=== PATIENT | female | born 2005 | race Caucasian/White ===

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

== ENCOUNTER 2024-02-15 21:15 | Emergency (ER) | payer OTHER, SELFPAY ==
[2024-02-15 21:22] VITALS: BP 144/83; PULSE 100; RESP 20; TEMP 37.7; O2SAT 98; BMI 29.2
[2024-02-15] MEDS: LACTATED RINGERS 1000 ML 1,000 ML IV (21:50)
--- NOTE | 2024-02-15 21:53 | ED.CHESTPAIN ---
HPI - Chest Pain General Time Seen by Provider: 21:54 Date Seen: 02/15/24 Chief Complaint: Chest Pain Stated Complaint: chest pain Time Seen by Provider: 02/15/24 21:27 Source: patient, RN notes reviewed and old records reviewed Mode of arrival: ambulatory Limitations: no limitations History of Present Illness HPI narrative: This 18-year-old female is ambulatory into the ED of her own accord with concern chest pain. It is been there since yesterday, she describes it is there all the time, has a sharp character. It is not necessarily pleuritic. It is been bad to the point that she will feel electric shocks into both arms and arms will feel numb and tingly. She admits that she is having progressive shortness of breath for while. She reportedly was hospitalized at [facility] December 09 to December 12 of this year. She had an EKG, echocardiogram, MRI, EEG. [place] [address] in a fever of 102?, heart rate of 120. Her strep ended up being positive on 12/12/2023. She notes that she has had ongoing spells of syncope. She passed out multiple times last weekend, her friend who is with her states at 1 point she stopped breathing. They did call 911, she declined transfer for evaluation. She states that they are considering possibility of pots and considering referral for this. She does have underlying anxiety, had been started back on citalopram in December. I do have her visit note from Dr. Floyd from 12/14/2023. Patient admits that she was , miscarried last month but is not on any contraceptives. She notes that she has fluttering spells of her heart, this has been getting worse. She states she did wear a heart monitor from [facility] for about 30 days. She notes she still had spells of her heart rate going up to 120s. complaint: chest pain Related Data Home Medications ?Medication ?Instructions ?Recorded ?Confirmed citalopram 20 mg tablet 20 mg PO DAILY 01/04/24 01/04/24 Allergies Allergy/AdvReac Type Severity Reaction Status Date / Time watermelon Allergy Severe Anaphylaxis Verified 02/15/24 21:26 banana AdvReac Verified 02/15/24 21:26 Review of Systems Status of ROS Reports: 6 or more systems reviewed and unremarkable except as noted in History and below [facility] History Syncope ?R55 - Syncope and collapse (ICD-10) Headache ?R51.9 - Headache, unspecified (ICD-10) Social History Smoking Status: Never smoker Do you use any of these nicotine containing products: None How often do you have a drink containing alcohol: never AUDIT-C Alcohol total score: 0 Non-prescribed substance use: denies use service: No Exam Const Vital Signs, click to edit/add: Vital Signs - 24 hr 02/15/24 21:22 02/15/24 23:00 02/15/24 23:29 Temperature 99.8 F H Pulse Rate [Pulse Oximeter] 100 79 75 Respiratory Rate 20 16 Blood Pressure [Right Upper Arm] 144/83 H Pulse Oximetry 98 99 98 Oxygen Delivery Method Room Air Room Air Room Air This 18-year-old female is alert, interactive, no apparent distress. She is speaking complete sentences, speech is normal. Pupils are equal and round, extraocular movements intact, sclera clear. Symmetrical facial function. Neck is supple, no adenopathy, no thyromegaly masses or nodules. Lungs are clear come good air entry, no wheezing or crackles. CV regular rate and rhythm, no murmur, normal S1-S2, no S3-S4. No chest wall tenderness. Abdomen is soft no rebound or guarding, organomegaly. She has no lower extremity edema. Documenting provider has reviewed patient's vital signs: yes Course Course ED Course: Patient will be on cardiac monitoring and pulse oximetry to ensure no arrhythmia or hypoxia. Consider chest imaging with CT PE protocol if her D-dimer is elevated. Check full complement of labs. At her age would be unlikely to be acute coronary syndrome unless she has anomalous vessels or cycle infective etiology. She currently looks quite well. We did discuss if her workup here is negative, highly recommend following up with her primary care provider for further discussion of her symptoms, consideration of referral to specialist in POTS. Reevaluation(s) Time of Reevaluation #1: 00:03 Reevaluation #1: Reviewed with patient that we have seen no evidence of arrhythmia or hypoxia while being monitored. Her laboratory evaluation [place] [address], certainly lower than what she was in December at 22,000 that was reported. Her D-dimer is normal at 0.33, thus, no recommendation for chest CT PE protocol. Her blood gas on arrival supports hyperventilation. Her chemistries are normal, magnesium was normal, troponin I undetectable. Her C reactive protein and procalcitonin are normal, hCG qualitative was negative. ProBNP less than 20. There was no strep, triple viral swab was negative. This time I do think she is stable to discharge to home for further outpatient evaluation management. We do not definitively know exact etiology of her chest symptoms but we have ruled out medical emergencies at this time. Vital Signs Vital signs: Initial Vital Signs Temperature 99.8 F H 02/15/24 21:22 Temperature Source Temporal Artery Scan 02/15/24 21:22 Pulse Rate 100 02/15/24 21:22 Respiratory Rate 20 02/15/24 21:22 Blood Pressure 144/83 H 02/15/24 21:22 Blood Pressure Mean 103 02/15/24 21:22 Blood Pressure Position Sitting 02/15/24 21:22 Pulse Oximetry 98 02/15/24 21:22 Oxygen Delivery Method Room Air 02/15/24 21:22 Vital Signs Temperature 99.8 F H 02/15/24 21:22 Pulse Rate 100 02/15/24 21:22 Respiratory Rate 20 02/15/24 21:22 Blood Pressure 144/83 H 02/15/24 21:22 Pulse Oximetry 98 02/15/24 21:22 Oxygen Delivery Method Room Air 02/15/24 21:22 Temperature 99.8 F H 02/15/24 21:22 Pulse Rate 75 02/15/24 23:29 Respiratory Rate 16 02/15/24 23:00 Blood Pressure 144/83 H 02/15/24 21:22 Pulse Oximetry 98 02/15/24 23:29 Oxygen Delivery Method Room Air 02/15/24 23:29 Medications Administered Medications: Discontinued Medications Generic Name Dose Route Start Last Admin Trade Name Freq PRN Reason Stop Dose Admin Lactated Ringer's 1,000 mls @ 1,000 mls/hr 02/15/24 21:31 02/15/24 22:50 Lactated Ringers 1000 Ml IV 02/15/24 22:30 Infused .Q1H ONE Infusion MDM - Chest Pain Lab Data Attestation: I reviewed the patient's lab results. Labs: Lab Results 02/15/24 02/15/24 02/15/24 Range/Units 21:50 21:50 21:50 WBC 14.54 H (4.50-11.00) K/uL RBC 4.64 (4.00-5.20) m/uL Hgb 14.0 (12.0-16.0) gm/dL Hct 42.1 (33.0-51.0) % MCV 91 (80-100) fL MCH 30 (26-34) pg MCHC 33 (32-36) gm/dL RDW Coeff of Nel 13.1 (11.5-15.5) % Plt Count 342 (140-440) K/uL Neut % (Auto) 64.8 (42.0-72.0) % Lymph % (Auto) 24.7 (20-44) % [place] % (Auto) 4.7 (0.0-11.0) % Eos % (Auto) 5.2 (0.0-7.0) % Baso % (Auto) 0.4 (0.0-3.0) % Neut # (Auto) 9.40 H (1.7-7.0) K/uL Lymph # (Auto) 3.60 H (0.90-2.90) K/uL [place] # (Auto) 0.70 (0.00-0.90) K/UL Eos # (Auto) 0.80 H (0.00-0.50) K/uL Baso # (Auto) 0.10 (0.00-0.30) K/uL Abs Immat Gran (auto) 0.00 (0.00-0.30) K/uL Imm/Tot Granulo (auto) 0.2 % D-Dimer Quant (PE/DVT) 0.33 (0.00-0.50) ug/ml VBG pH 7.427 (7.32-7.43) VBG pCO2 35 L (40-50) mmHG VBG pO2 105.0 H (25-47) mmHG VBG HCO3 23 (21-28) mmol/L Sodium Cancelled 139 Potassium Cancelled 3.7 Chloride Cancelled Carbon Dioxide Anion Gap BUN Creatinine Estimated Creat Clear Estimated GFR Glucose Lactate (0.5-1.9) mmol/L Calcium Magnesium (1.5-2.6) mg/dL Troponin I (0.01-0.04) ng/mL C-Reactive Protein NT-Pro-B Natriuret Pep pg/mL Procalcitonin (<0.50) ng/mL HCG, Qual (Negative) SARS-CoV-2 (PCR) (Negative) Influenza Type A (PCR) (Negative) Influenza Type B (PCR) (Negative) RSV (PCR) (Negative) Group A Strep DNA (Not Detectd) 02/15/24 02/15/24 02/15/24 Range/Units 21:50 21:50 21:50 WBC (4.50-11.00) K/uL RBC (4.00-5.20) m/uL Hgb (12.0-16.0) gm/dL Hct (33.0-51.0) % MCV (80-100) fL MCH (26-34) pg MCHC (32-36) gm/dL RDW Coeff of Nel (11.5-15.5) % Plt Count (140-440) K/uL Neut % (Auto) (42.0-72.0) % Lymph % (Auto) (20-44) % [place] % (Auto) (0.0-11.0) % Eos % (Auto) (0.0-7.0) % Baso % (Auto) (0.0-3.0) % Neut # (Auto) (1.7-7.0) K/uL Lymph # (Auto) (0.90-2.90) K/uL [place] # (Auto) (0.00-0.90) K/UL Eos # (Auto) (0.00-0.50) K/uL Baso # (Auto) (0.00-0.30) K/uL Abs Immat Gran (auto) (0.00-0.30) K/uL Imm/Tot Granulo (auto) % D-Dimer Quant (PE/DVT) (0.00-0.50) ug/ml VBG pH (7.32-7.43) VBG pCO2 (40-50) mmHG VBG pO2 (25-47) mmHG VBG HCO3 (21-28) mmol/L Sodium Potassium Chloride 108 Carbon Dioxide Cancelled 21 Anion Gap Cancelled 10 BUN Cancelled Creatinine Estimated Creat Clear Estimated GFR Glucose Lactate (0.5-1.9) mmol/L Calcium Magnesium (1.5-2.6) mg/dL Troponin I (0.01-0.04) ng/mL C-Reactive Protein NT-Pro-B Natriuret Pep pg/mL Procalcitonin (<0.50) ng/mL HCG, Qual (Negative) SARS-CoV-2 (PCR) (Negative) Influenza Type A (PCR) (Negative) Influenza Type B (PCR) (Negative) RSV (PCR) (Negative) Group A Strep DNA (Not Detectd) 02/15/24 02/15/24 02/15/24 Range/Units 21:50 21:50 21:50 WBC (4.50-11.00) K/uL RBC (4.00-5.20) m/uL Hgb (12.0-16.0) gm/dL Hct (33.0-51.0) % MCV (80-100) fL MCH (26-34) pg MCHC (32-36) gm/dL RDW Coeff of Nel (11.5-15.5) % Plt Count (140-440) K/uL Neut % (Auto) (42.0-72.0) % Lymph % (Auto) (20-44) % [place] % (Auto) (0.0-11.0) % Eos % (Auto) (0.0-7.0) % Baso % (Auto) (0.0-3.0) % Neut # (Auto) (1.7-7.0) K/uL Lymph # (Auto) (0.90-2.90) K/uL [place] # (Auto) (0.00-0.90) K/UL Eos # (Auto) (0.00-0.50) K/uL Baso # (Auto) (0.00-0.30) K/uL Abs Immat Gran (auto) (0.00-0.30) K/uL Imm/Tot Granulo (auto) % D-Dimer Quant (PE/DVT) (0.00-0.50) ug/ml VBG pH (7.32-7.43) VBG pCO2 (40-50) mmHG VBG pO2 (25-47) mmHG VBG HCO3 (21-28) mmol/L Sodium Potassium Chloride Carbon Dioxide Anion Gap BUN 15 Creatinine Cancelled 0.7 Estimated Creat Clear Cancelled 110.70 Estimated GFR Cancelled Glucose Lactate (0.5-1.9) mmol/L Calcium Magnesium (1.5-2.6) mg/dL Troponin I (0.01-0.04) ng/mL C-Reactive Protein NT-Pro-B Natriuret Pep pg/mL Procalcitonin (<0.50) ng/mL HCG, Qual (Negative) SARS-CoV-2 (PCR) (Negative) Influenza Type A (PCR) (Negative) Influenza Type B (PCR) (Negative) RSV (PCR) (Negative) Group A Strep DNA (Not Detectd) 02/15/24 02/15/24 02/15/24 Range/Units 21:50 21:50 21:50 WBC (4.50-11.00) K/uL RBC (4.00-5.20) m/uL Hgb (12.0-16.0) gm/dL Hct (33.0-51.0) % MCV (80-100) fL MCH (26-34) pg MCHC (32-36) gm/dL RDW Coeff of Nel (11.5-15.5) % Plt Count (140-440) K/uL Neut % (Auto) (42.0-72.0) % Lymph % (Auto) (20-44) % [place] % (Auto) (0.0-11.0) % Eos % (Auto) (0.0-7.0) % Baso % (Auto) (0.0-3.0) % Neut # (Auto) (1.7-7.0) K/uL Lymph # (Auto) (0.90-2.90) K/uL [place] # (Auto) (0.00-0.90) K/UL Eos # (Auto) (0.00-0.50) K/uL Baso # (Auto) (0.00-0.30) K/uL Abs Immat Gran (auto) (0.00-0.30) K/uL Imm/Tot Granulo (auto) % D-Dimer Quant (PE/DVT) (0.00-0.50) ug/ml VBG pH (7.32-7.43) VBG pCO2 (40-50) mmHG VBG pO2 (25-47) mmHG VBG HCO3 (21-28) mmol/L Sodium Potassium Chloride Carbon Dioxide Anion Gap BUN Creatinine Estimated Creat Clear Estimated GFR 127 Glucose Cancelled 114 Lactate 1.3 (0.5-1.9) mmol/L Calcium Cancelled 9.1 Magnesium 2.0 (1.5-2.6) mg/dL Troponin I < 0.01 L (0.01-0.04) ng/mL C-Reactive Protein Cancelled NT-Pro-B Natriuret Pep pg/mL Procalcitonin (<0.50) ng/mL HCG, Qual (Negative) SARS-CoV-2 (PCR) (Negative) Influenza Type A (PCR) (Negative) Influenza Type B (PCR) (Negative) RSV (PCR) (Negative) Group A Strep DNA (Not Detectd) 02/15/24 02/15/24 Range/Units 21:50 22:09 WBC (4.50-11.00) K/uL RBC (4.00-5.20) m/uL Hgb (12.0-16.0) gm/dL Hct (33.0-51.0) % MCV (80-100) fL MCH (26-34) pg MCHC (32-36) gm/dL RDW Coeff of Nel (11.5-15.5) % Plt Count (140-440) K/uL Neut % (Auto) (42.0-72.0) % Lymph % (Auto) (20-44) % [place] % (Auto) (0.0-11.0) % Eos % (Auto) (0.0-7.0) % Baso % (Auto) (0.0-3.0) % Neut # (Auto) (1.7-7.0) K/uL Lymph # (Auto) (0.90-2.90) K/uL [place] # (Auto) (0.00-0.90) K/UL Eos # (Auto) (0.00-0.50) K/uL Baso # (Auto) (0.00-0.30) K/uL Abs Immat Gran (auto) (0.00-0.30) K/uL Imm/Tot Granulo (auto) % D-Dimer Quant (PE/DVT) (0.00-0.50) ug/ml VBG pH (7.32-7.43) VBG pCO2 (40-50) mmHG VBG pO2 (25-47) mmHG VBG HCO3 (21-28) mmol/L Sodium Potassium Chloride Carbon Dioxide Anion Gap BUN Creatinine Estimated Creat Clear Estimated GFR Glucose Lactate (0.5-1.9) mmol/L Calcium Magnesium (1.5-2.6) mg/dL Troponin I (0.01-0.04) ng/mL C-Reactive Protein 0.6 NT-Pro-B Natriuret Pep < 20 pg/mL Procalcitonin < 0.03 L (<0.50) ng/mL HCG, Qual Negative (Negative) SARS-CoV-2 (PCR) Negative SARS-CoV-2 (Negative) Influenza Type A (PCR) Negative PCR FLU A (Negative) Influenza Type B (PCR) Negative PCR FLU B (Negative) RSV (PCR) Negative PCR RSV (Negative) Group A Strep DNA NOT DETECTED (Not Detectd) ECG Data Attestation: I personally reviewed and interpreted this ECG as follows: (Sinus rhythm, 90 beats per minute. Incomplete right bundle branch block. No evidence of any ischemia or infarct. QT corrected 441 milliseconds.) ECG interpretation date: 02/15/24 ECG interpretation time: 22:13 Prior ECG tracings: not available for review Discharge Plan Discharge Clinical Impression: Chest pain Patient Disposition: Home, Self-Care Condition: Stable Instructions: Chest Pain (ED) Additional Instructions: Need to get scheduled with your primary care provider in clinic. Discuss potential referral for POTS for your recurrent syncope and her other symptoms. Can try some Tylenol or ibuprofen for your current chest symptoms. Do want you seen in clinic within the next 3-5 days for re-evaluation in further workup for your symptoms. In the meantime, if you are worsening, develops new or concerning symptoms, do have a fever develop, do recommend re-evaluation. Activity Level: Activity as Tolerated Discharge Diet: Regular Prescriptions: No Action citalopram 20 mg tablet 20 mg PO DAILY Follow Up/Referrals: Margarita Floyd MD [Primary Care Provider] - Stand Alone Forms: [employer] Info Instructions
[2024-02-15 21:59] LABS: HCO3 VBG 23 mmol/L (21-28); Lactate* 1.3 mmol/L (0.5-1.9); PCO2 VBG 35 mmHG (40-50); pH VBG 7.427 (7.32-7.43)
[2024-02-15 22:10] LABS: Basophils Percent Auto 0.4 % (0.0-3.0); Eosinophils Percent Auto 5.2 % (0.0-7.0); Hematocrit 42.1 % (33.0-51.0); Immature Granulocytes Pct Auto 0.2 %; Lymphocytes Percent Auto 24.7 % (20-44); Mean Corpuscular HGB Conc 33 gm/dL (32-36); Mean Corpuscular Hemoglobin 30 pg (26-34); Mean Corpuscular Volume 91 fL (80-100); Monocytes Percent Auto 4.7 % (0.0-11.0); Neutrophils Percent Auto 64.8 % (42.0-72.0); Platelet Count* 342 K/uL (140-440); RDW Coefficient of Variation % 13.1 % (11.5-15.5); Red Blood Count 4.64 m/uL (4.00-5.20); White Blood Count* 14.54 K/uL (4.50-11.00)
[2024-02-15 22:13] LABS: Slide Review Reflex No
--- OUTSIDE RECORDS SUMMARY | 2024-02-15 22:16 | XMS_ITS | Encounter Summary ---
Author Organization [facility] Address [address] [place] [address] Care Team Providers Care Java Developer Analyst Name Role Phone Jocelyn Devine PA-C Primary Care Provider [phone] Reason for Referral * Consult/Transfer Care (Routine) - New Request Specialty Diagnoses / Procedures Referred By Contac t Referred To Contact Diagnoses Syncope, unspecified syncope type Keri Weston PA-C [address] [place] [address] Referral ID Status Reason Start Date Expiration Date V isits Requested Visits Authorized [id number] New Request 12/13/2023 03/13/2025 1 1 Scheduling Instructions Your clinician [email or web address] You can quickly make your appointment by calling [phone] We suggest you call your health insurance company about your coverage and benefits for this appointment. Question Answer Appointment Urgency? Non-Urgent * Procedure/Equipment (Routine) - New Request Specialty Diagnoses / Procedures Referred By Contac t Referred To Contact Diagnoses Syncope, unspecified syncope type Keri Weston PA-C [address] [place] [address] Referral ID Status Reason Start Date Expiration Date V isits Requested Visits Authorized [id number] New Request 12/13/2023 03/13/2025 1 1 Scheduling Instructions You will be contacted within a week by cardiology regarding your monitor hook and eye machine operator. This recommended service may not be covered by your insurance coverage. We suggest you call your health insurance company about your coverage and benefits for this appointment. Question Answer Appointment Urgency? Non-Urgent Location: [facility] Is patient appropriate candidate for self hookup of monitor? Yes Does this patient have a pacemaker No Diagnosis: Syncope and Collapse and Near Syncope * Therapies (Routine) - New Request Specialty Diagnoses / Procedures Referred By Darren narvaez Referred To Contact Diagnoses Syncope, unspecified syncope type Keri Weston PA-C [address] [place] [address] Referral ID Status Reason Start Date Expiration Date V isits Requested Visits Authorized [id number] New Request 12/13/2023 12/10/2024 1 1 Scheduling Instructions Your clinician has recommended an appointment with [facility]. You can quickly make your appointment online at [employer]/schedule. You can also call [phone] for help scheduling your appointment. We suggest you call your health insurance company about your coverage and benefits for this appointment. Question Answer Appointment Urgency? Within 1 Week (Urgent) Requested Services Evaluate and treat May use saline for irrigation or cleansing Yes [facility] hospital follow up Choose specific service if desired Vestibular Rehab dexamethasone use Yes May check glucose per protocol (see policy link below) or if patient has symptoms? Yes * Consult/Transfer Care (Routine) Specialty Diagnoses / Procedures Referred By Darren narvaez Referred To Contact [address] [address] Referral ID Status Reason Start Date Expiration Date Visits Re quested Visits Authorized Scheduling Instructions This order is your clinician's recommendation for a service and is not an insurance referral which authorizes payment. The recommended service and/or location may not be covered by your insurance plan. Please call the number on your insurance card to find out your specific benefits and coverage for the recommended services and/or location. If you need help scheduling the recommended services, please ask your clinician's staff to assist you. Question Answer What type of follow up? IP Discharge Appointment Urgency? Non-Urgent Reason for visit? hospital follow up Comments Primary Care Provider: [facility] * Procedure/Equipment (Routine) - Incomplete Specialty Diagnoses / Procedures Referred By Contac t Referred To Contact Procedures MR Brain W/WO IV Cont Carlton Wynne MD [address] [place] [id number] Referral ID Status Reason Start Date Expiration Date V isits Requested Visits Authorized [id number] Incomplete 12/10/2023 03/10/2025 1 1 Reason for Visit * Reason Comments Syncope * Auth/Cert (Routine) Specialty Diagnoses / Procedures Referred By Contac t Referred To Contact Diagnoses Syncope, unspecified syncope type Syncope, unspecified syncope type Referral ID Status Reason Start Date Expiration Date Visits Re quested Visits Authorized [id number] 1 1 Encounter Details Date Type Department Care Team (Late st Contact Info) Description 12/10/2023 2:27 PM CDT - 12/13/2023 12:14 PM CDT Emergency [facility] S[address] [place] [id number] Carmelita Arnold MD [address] [place] [id number] Sid Phelan DO [address] [place] [phone] Carlton Wynne MD [address] [place] [id number] Jean Robins MD [address] [place] [address] Sid Starks MD [address] [place] [phone] Keri Weston PA-C [address] [place] [phone] Syncope, unspecified syncope type (Primary Dx) Discharge Disposition: Home Social History Tobacco Use Types Packs/Day Years Used Date Smoking Tobacco: Never Assessed [facility] Utilities Answer Date Recorded In the past 12 months has th e electric, gas, oil, or water company threatened to shut off services in your home? No 12/10/2023 Humiliation, Afraid, Rape, and Kick questionnair e Answer Date Recorded Fear of Current or Ex-Partner Not on file Emotionally Abused Not on file 12/10/2023 Within the last year, have y ou been kicked, hit, slapped, or otherwise physically hurt by your partner or ex-partner? No 12/10/2023 Within the last year, have y ou been raped or forced to have any kind of sexual activity by your partner or ex-partner? No 12/10/2023 Housing Stability Vital Sign Answer Wale e Recorded In the last 12 months, was t here a time when you were not able to pay the mortgage or rent on time? No 12/10/2023 Number of Places Lived in the Last Year Not on f ile 12/10/2023 In the last 12 months, was t here a time when you did not have a steady place to sleep or slept in a long term (including now)? No 12/10/2023 Sex and Gender Information Value Date Recorded Sex Assigned at Not on file Gender Identity Not on file Sexual Orientation Not on file documented as of this encounter Last Filed Vital Signs Vital Sign Reading Time Taken Comments Blood Pressure 135/57 12/13/2023 8:10 AM CDT Pulse 96 12/13/2023 11:00 AM CDT Temperature 36.9 ??C (98.4 ??F) 12/13/2023 7:40 AM CD T Respiratory Rate 16 12/13/2023 7:40 AM CDT Oxygen Saturation 98% 12/13/2023 8:10 AM CDT Inhaled Oxygen Concentration - - Weight 84.9 kg (187 lb 3.2 oz) 12/10/2023 6:25 P M CDT Height 160 cm (5' 3) 12/10/2023 6:25 PM CDT Body Mass Index 33.16 12/10/2023 6:25 PM CDT documented in this encounter Discharge Summaries * Sid Starks MD - 12/13/2023 10:24 AM CDT I have seen and examined the patient with BO Weston. I agree with the assessment and plan as documented above. Additionally; On my interview She is feeling much better. No spells for 36 hours On my exam Vitals WNL. HR has normalized My assessment and plan; Briefly this young woman was having episodes likely related to pre-syncope after GI illness and concominant Group A strep. As strep/sepsis weren't clear until 24 hours into hospitalization extensive workup was undertaken including EEG (negative for seizures) as well as Echo (Normal EF and no significant valvular disease). Once sepsis from Group A strep was appropriately treated her symptoms resolved. Out of an abundanceof caution she was discharged with an event monitor but it seems likely that her dizziness/weakness/inability to respond was simply due to inflammation, tachycardia, possibly transient hypotension from sepsis Sid Starks MD 12/13/2023 I personally spent > 30 minutes on d/c of this patient. [facility] Hospital Medicine Discharge Summary Patient ID: Aj Sam [id number] 18 y.o. 2005 Admit date: 12/10/2023 Discharge date: 12/13/2023 Final Discharge Diagnoses: Primary problem: Spells of Altered cognition Anxiety (HRC) Heart murmur Incomplete RBBB Dizziness Panic attacks (HRC) Emesis LOC (loss of consciousness) (HRC) * No resolved hospital problems. * Brief HPI Summary: 18 y.o. female with PMH of anxiety, panic attacks, and heart murmur who presented to ED with hxof multiples episodes of syncope. Pt is accompanied by her sister and a friend. Pt states that she has been in her usual state of health until late last week. Pt states that she and her father shared a meal on 12/06 and the both of them then experienced multiple episodes of emesis. Pt states that she felt well the next day on 12/07. She smoked a THC e-cigarette that afternoon. Later that night she became dizzy while grabbing a pop in a gas station. She says that for the rest of the day she felt dizzy and weak. She awoke 12/08 feeling well. However, she would become dizzy when bending over and while in the shower. Later that day while at a truck meet she was standing and had an episode of syncope. Her sister/friend says she was unconscious for 1- 2 minutes. They deny color change or apnea. Pt regained consciousness and was not confused. She then had another similar episode of syncope while sitting in a truck. Pt denies prodromal sx such as dyspnea, chest pain, headache. Pt was then taken to [place] ED where CBC, BMP, glucose, TSH, HCG, D-dimer testing was reassuring. CT head without acute process. Pt discharged with meclizine. Pt states that the episodes of syncope have continued today and she has had probably 15 episodes.Multiple episodes have occurred while sitting and lying. Pt says she has had at least four episodes in the ED today. She has been vitally stable. CBC, BMP, troponin, TSH, HCG, D-dimer all normal. ECG with incomplete RBBB. Pt given NS 1L bolus. Pt says that during some of these episodes her Apple watch report a HR of 170. Pt reports long hx of anxiety and panic attacks. She tells me that years ago she was on a daily medfor anxiety but stopped taking it as it didn't work. She reports that anything can make her anxious including work, family, social life. She denies any recent new stressors. Denies EtOH use and and recreational drug use besides THC. Denies family hx of unexpected in a young individual. She does have CAD on maternal side. Reports headache but says she often gets headaches. Denies diarrhea, fever, chills, change in vision, dyspnea, dysuria, neck pain, trauma. During the spell she reports being aware of it happening. Please see the admission history and physical for full details. Hospital Course, by problem: Spells of altered cognition: Pt reports to be aware when the spells happen Has had over 16 spells since it started 12/08/23, has gone down in frequency (last one 12/12/23 at 2300hrs). -Drug screen is negative, she denies any other drug use aside from THC. - Lab work up has been reassuring with nml TSH, negative Hcg/trop/D-dimer, no infectious/anemic cocnern. -EEG without seizure activity for 24 hrs, neuro saw her; with recommendation below - no driving for 3 months and patient need to report to [facility]. - cautions any activity that potential harm self or other people should she have an event losing motor control. May follow up with primary for resuming driving privileges. - patient may follow up with [facility] or [facility] for potential autonomic function testing. - referral placed -HR 120s, will review telemetry. Has had elevated HR since Mon at [place] where she was diagnosed with paroxysmal tachycardia, was to get Holter monitor. She was in NSR during an event, TTE reassuring, negative troponin. Cardiac cause not found. Symptoms likely from infection. Anxiety Panic attacks States years ago she was on a daily med for anxiety but stopped taking it as it didn't work. Anything can make her anxious. Denies any recent new stressors. - pt considering starting an SSRI, to F/U with PCP Strep group A tonsillitis Sepsis picture 12/11 - sepsis picture noted with fever, tachycardia, WBC 22. Blood cultures obtaines- pending. 12/12 - Afebrile, WBC down to 16. NSR with normal HR. Pt asymptomatic. On Amoxicillin PO. Continue ABX to complete full course Emesis 12/06, resolved Heart murmur 2020 echo reassuring. Repeat TTE 12/12 reassuring. Primary care/TCU recommendations for follow up, including significant medication changes, medications being held, or recommended imaging or labs: Event monitor, to f/u with PCP and cardiac center - Pending Labs: Pending Labs Order Current Status Blood Culture In process Blood Culture In process Blood Culture In process Blood Culture In process Discharge Medications: Done while pt still in hospital bed Medication List START taking these medications amoxicillin 500 MG capsule Commonly known as: AMOXIL Take 1 Capsule (500 mg) by mouth three times a day for 27 doses. Indications: Infection of the Tonsils caused by Streptococcus Bacteria ibuprofen 600 MG tablet Commonly known as: MOTRIN Take 1 Tablet (600 mg) by mouth every 6 hours as needed for Pain or Fever. Where to Get Your Medications These medications were sent to [facility] [address] [facility] [address] Hours: Open 24x7 amoxicillin 500 MG capsule ibuprofen 600 MG tablet - Consults: neurology - Procedures and Surgeries: EEC - non revealing of seizure activity. TTE- Reassuring Discharge Exam: BP 135/57 Pulse 81 Temp 98.4 ??F (36.9 ??C) (Oral) Resp 16 Ht 5' 3 (1.6 m) Wt 84.9 kg (187 lb 3.2 oz) LMP 11/16/2023 SpO2 98% BMI 33.16 kg/m?? Exam: Physical Exam Constitutional: General: She is not in acute distress. Appearance: Normal appearance. She is obese. She is not ill-appearing, toxic- appearing or diaphoretic. HENT: Head: Normocephalic and atraumatic. Right Ear: External ear normal. Left Ear: External ear normal. Ears: Comments: Hearing normal Nose: Nose normal. Mouth/Throat: Pharynx: Uvula midline. Tonsils: Tonsillar exudate present. No tonsillar abscesses. Eyes: General: No scleral icterus. Right eye: No discharge. Left eye: No discharge. Extraocular Movements: Extraocular movements intact. Conjunctiva/sclera: Conjunctivae normal. Pupils: Pupils are equal, round, and reactive to light. Cardiovascular: Rate and Rhythm: Normal. Pulses: Normal pulses. Heart sounds: Normal heart sounds. Pulmonary: Effort: Pulmonary effort is normal. Breath sounds: Normal breath sounds. Abdominal: General: Abdomen is flat. Bowel sounds are normal. Palpations: Abdomen is soft. Tenderness: There is no abdominal tenderness. Musculoskeletal: General: Normal range of motion. Cervical back: Neck supple. Skin: General: Skin is warm. Capillary Refill: Capillary refill takes less than 2 seconds. Neurological: General: No focal deficit present. Mental Status: She is alert and oriented to person, place, and time. Psychiatric: Mood and Affect: Mood normal. Disposition: home Code Status: Full Code Follow up: Referrals (From admission, onward) None Significant Diagnostic Studies (imaging, labs, micro, etc), see EMR for full details: EEG - Non epileptic forms TTE - Summary 1. Normal sinus rhythm during study. 2. Normal LV size with normal wall thickness. Calculated biplane LVEF 65-70%. No regional wall motion abnormalities. (Normal function). Indeterminate diastolic function. 3. Normal RV size and systolic function. 4. There is mild tricuspid valve regurgitation. 5. IVC is small in size and responsive to inspiration indicating normal or low RA pressure. 6. A prior study is not available for comparison. Keri Weston PA-C documented in this encounter Discharge Instructions * Discharge Instructions* Annalisa Archuleta RN - 12/13/2023 10:42 AM CDT Community Resources Fall Prevention Recommendations Follow therapy recommendations around equipment use and activity progression Remove trip hazards to keep pathways clear in the home Remove throw rugs Keep frequently used items in easy to reach places Use non-slip mats in the bathtub and on shower floors Improve lighting in your home in all areas Wear shoes or non-slip footwear inside the house * Discharge Instr - Safety* Annalisa Archuleta RN - 12/13/2023 10:42 AM CDT Call your clinic or seek medical help if you have any sudden change in your condition or if you have any of the following: chest pain difficulty breathing fever greater than 101.3 degrees F pain not relieved with usual methods shortness of breath documented in this encounter Medications at Time of Discharge Medication Sig Dispensed Refills Start Date End Date ibuprofen (MOTRIN) 600 MG tablet Take 1 Tablet (600 mg) by mouth every 6 hours as needed for Pain or Fever. 30 Tablet 12/13/2023 amoxicillin (AMOXIL) 500 MG capsuleIndications:S treptococcal Tonsillitis Take 1 Capsule (500 mg) by mouth three times a day for 27 doses. Indications: Infection of the Tonsils caused by Streptococcus Bacteria 27 Capsule 12/13/2023 12/22/2023 documented as of this encounter Progress Notes * Maria Dolores Lara RN - 12/13/2023 12:00 PM CDT Alert/oriented x4. Afebrile. Independent in room. Continues to complain of throat pain but reports pain is improving. Denies CP/SOB/N/V/N/T. Denies any unmet needs. Discharge education and medicationteaching completed with patient and mother, both verbalized understanding. [facility] Discharge Note - Nursing Admission Date/Time: 12/10/2023 2:27 PM Attending MD: Keri Weston PA-C Patient discharged: to Home. Discharge Date: 12/13/2023 Discharge Time: 12:15 PM Patient accompanied by: relative (mom). Transported by: Walked Valuables were taken home by patient: Yes Discharge instructions given and explained to patient: Yes Discharge Patient Education Plan completed, taught, and provided to patient/caregiver at discharge:Yes Discussed medication risks with patient Patient understands medications usage and side effects Patient understands diagnosis Action Plan for management of symptoms/side effects/complications requiring medical attention established and shared with patient/caregiver Was patient discharged on Warfarin? {(Do not delete line; Warfarin documentation is required) No Patients general condition on discharge: Stable All medical devices (telemetry/IV/etc) unless otherwise ordered, have been removed and stored: Yes --- End of Report --- * Maria Dolores Lara RN - 12/12/2023 6:47 PM CDT Alert/oriented x4. Complains of sore throat at start of shift, redness and white patches observed in back of throat upon assessment. Strep swab ordered per MD, +strep. Patient noted to be very sleepyand febrile later in afternoon, TMax 102.2. PRN tylenol and ibuprofen given, T100.6 on recheck. MD notified and placed new orders for sepsis work up. Respiratory panel swab completed, awaiting results. ECHO will be completed in the AM tomorrow. Appears to be sleeping comfortably at end of shift. Night RN updated and will continue to monitor. Care hours [id number] * Sid Starks MD - 12/12/2023 12:41 PM CDT [facility] Progress Note Chief complaint: altered cognition Subjective: Pt reports that sympotms episodes started 3 days ago, never had any prior. She was in [place] for Truck Meets. Day prior she felt dizzy at which point she took dramamine but never hd an episode. Next day was with lots of friends walking around when she had first episode. Since then she went on having about one every 1-2 hours for the next 24 hrs. Last episode was 2300 yesterday. However she reports to be fully aware when the spells happen, though she cannot do anything about them. She snaps out spontaneously. No associated SOB or difficulty breathing. She gets left upper chest pain and dizziness preceding the episodes and at times BONILLA after the episode. Denies falling or hi tting head. Denies any prior Hx. Denies use of any recreational substance. Denies taking any meds or anything unusual at the festival. Denies known cardiac or neuro pathologies to self, but MS ga and another family member. No light headedness, dizziness, chest pain, SOB, palpitation, n/v/d.She reports sore throat /10 starting early this AM. Objective: BP 127/80 Pulse (!) 121 Temp 99.7 ??F (37.6 ??C) (Oral) Resp 16 Ht 5' 3 (1.6 m) Wt 84.9 kg (187 lb 3.2 oz) LMP 11/16/2023 SpO2 97% BMI 33.16 kg/m?? Oxygen Therapy Device (Oxygen Therapy): room air Flow (L/min): 0 Exam: Physical Exam Constitutional: General: She is not in acute distress. Appearance: Normal appearance. She is obese. She is not ill-appearing, toxic- appearing or diaphoretic. HENT: Head: Normocephalic and atraumatic. Right Ear: External ear normal. Left Ear: External ear normal. Ears: Comments: Hearing normal Nose: Nose normal. Mouth/Throat: Pharynx: Uvula midline. Tonsils: Tonsillar exudate present. No tonsillar abscesses. Eyes: General: No scleral icterus. Right eye: No discharge. Left eye: No discharge. Extraocular Movements: Extraocular movements intact. Conjunctiva/sclera: Conjunctivae normal. Pupils: Pupils are equal, round, and reactive to light. Cardiovascular: Rate and Rhythm: Tachycardia present. Pulses: Normal pulses. Heart sounds: Normal heart sounds. Pulmonary: Effort: Pulmonary effort is normal. Breath sounds: Normal breath sounds. Abdominal: General: Abdomen is flat. Bowel sounds are normal. Palpations: Abdomen is soft. Tenderness: There is no abdominal tenderness. Musculoskeletal: General: Normal range of motion. Cervical back: Neck supple. Skin: General: Skin is warm. Capillary Refill: Capillary refill takes less than 2 seconds. Neurological: General: No focal deficit present. Mental Status: She is alert and oriented to person, place, and time. Psychiatric: Mood and Affect: Mood normal. Results reviewed in [facility] and pertinent results are as follows: Labs: Imaging: Brain MRI 12/09 IMPRESSION: 1. Normal head MRI. Assessment and Plan: Aj Sam is a 18 y.o. female with pmhx of obesity, anxiety, panic attacks, and a heart murmur who was admitted on 12/10/2023 for multiple recurrent spells of altered cognition. Spells of altered cognition: Pt reports to be aware when the spells happen Has had over 16 spells since it started 4 days ago, had gone down in frequency (last one 2300 hrs last night by this encounter). -Drug screen is negative, she denies any other drug use aside from THC. - Lab work up has been reassuring with nml TSH, negative Hcg/trop/D-dimer, no infectious/anemic cocnern. -EEG without seizure activity for 24 hrs, neuro sign off with recommendation for outpatient clinic f/u, no driving -HR 120s, will review telemetry. Has had elevated HR since Mon at [place] where she was diagnosed with paroxysmal tachycardia, was to get Holter monitor. Given no seizure, cardiac cause cannot be ruled out with this HR. Will obtain another TTE (one in 2019 was reassuring), continue telemetry. - Other etiologies as carotid sinus syndrome, situational, vasovagal etc considered. Spells happen even while she is laying down though orthostatics were considered. Anxiety Panic attacks States years ago she was on a daily med for anxiety but stopped taking it as it didn't work. Anything can make her anxious. Denies any recent new stressors. - pt considering starting an SSRI Strep tonsillitis + strep, amoxicillin initiated Emesis 12/06, resolved Heart murmur 2020 echo reassuring. Addendum 1553 hrs: Provider notified pt's temperature was 102 F. Sepsis work up initiated. Labs, fluids, blood cultures. She is in Amoxicillin PO for strep throat. Evaluated at bedside with dad and boyfriend at bedside. Dad denies any known family Hx of such spells. Pt is neurologically intact without deficits, BONILLA, changes with vision/hearing, neck pain, paresthesias or weakness, no n/v/d. Appear non-toxic. Lab at bedside ready to draw labs. She did tolerate PO amoxicillin well. If she gets worse consider transition to IV ABX. At this time it does not seem intracranial infection to need emergent lumbar puncture. She has not had a spell since yesterday. Diet: Regular IVF: None DVT Prophylaxis: Low risk Code Status: Full Code Communication with pt. spokesperson: Pt Expected date of discharge: 1 day pending work up and clinical improvement Billing based on: Complexity - moderate Keri Weston PA-C I have seen and examined the patient with BO Weston. I agree with the assessment and plan as documented above. Additionally; On my interview No LOC during dizzy/can't respond spells. On my exam Normal exam except for tachycardia My assessment and plan; # Sepsis due to to Strep A: Rule out bacteremia. Treat with amox. # Pre-syncope/dizzy spells: Spells are not typical of any cardiac or neuro cause of syncope/loc. Perhaps she is sick from Strep and just experiencing weak/orthostatic episodes. Regardless will rule out more serious causes and plan to d/c with event monitor. Sid Starks MD 12/12/2023 * Neli Grace MD - 12/12/2023 10:52 AM CDT Neurology Inpatient Consultation Consult Requested By: Hospital Medicine Reason for Consult: Syncope Assessment/Recommendations: Aj Sam is a 18 y.o. female with pmhx of anxiety, panic attacks, and a heart murmur who presented to the ED with multiple days of lightheadedness and episodes of syncope. She continues to have recurrent episodes while in the hospital that are not associated with motor symptoms or prodromal symptoms. Her syncope usually lasts around 1-2 minutes per episode and she returns to her baseline within a minute or two after recovering. Labs and imaging including MRI brain wwo have been unrevealing so far. We discussed the need to avoid high risk activities such as driving vehicles for at leastthe next 3 months given these syncopal episodes. Recurrent spells described as light-headedness and unresponsiveness lasting 1-2 minutes. No significant postictal. No reported orthostatic changes. Since 12/09/2023. 24 EEG study showing no seizure activities. During study there was a spell caught but no electrographic seizure activities associated. - no driving for 3 months and patient need to report to [facility]. - cautions any activity that potential harm self or other people should she have an event losing motor control. May follow up with primary for resuming driving privileges. - patient may follow up with [facility] or [facility] for potential autonomic function testing. Neurology will sign off. Call if questions or need re-evaluation. Thank you for consulting us. I personally examined the patient and reviewed relevant imaging, labs, and test results. Total timespent > 35 minutes on this encounter, including history taking, chart review, examination of patient, coordinating with participating team (teams) and/or care givers, and documenting the visit. Neli Grace MD; PhD [facility] History of Present Illness: Aj Sam is a 18 y.o. female with past medical history of anxiety, panic attacks, and a heart murmur who presented to the ED following 2 days of syncopal episodes and lightheadedness. Workup at an outside hospital was reassuring including labs and CT head. Episodes continued which prompted her presentation to ED. She has not had episodes like this in the past. She reports that she did use thc the evening before these episodes began but it is unclear if this thc use is new to her or not. No family or personal history of seizure disorder. Denies any inducing factors. No sleep deprivation or recent particular stress. Patient is exercising regularly. 12/10/2023 documented an episode of fainting/syncope lasting 5-10 seconds. 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 Nurse wanting right away and patient was back to normal self already. Friends reported patient was out for about 2 to 2.5 minutes. She was breathing normally. No report of pale looking. She had 2/[address] chest pain falling episode. She reports each time after an episode shewould feel it. The pain would go away after 10 minutes or so. 12/12/2023: EEG showing no seizure activities. Had 1 spell caught but no electrographic changes to suggest seizure. Past Medical/Family/Social history No known family history of neurologic/seizure disorders or sudden cardiac is allergic to banana and citrullus vulgaris. ROS: A complete 10 point review of systems was obtained, the pertinent positives and negatives are reviewed above and in history present illness. Physical Examination Vitals: 12/12/23 0832 12/12/23 0900 12/12/23 1000 BP: 127/80 Pulse: (!) 117 (!) 111 (!) 109 Resp: Temp: SpO2: 97% Weight: General: Young F, resting in bed comfortably, in NAD Head: Atraumatic, normocephalic, without obvious abnormality HEENT: Oral mucosa dry. Throat clear. Respiratory: Respirations non-labored in RA Cardiovascular: Grossly perfused peripherally Psychiatric: Cooperative and appropriate mood & affect. A&Ox4. Follows two-step commands. EOMs intact. LT intact on face. Symmetric and full facial expressions. SCMs 5/5. Tongue midline. Strength 5/5 throughout. No pronator drift. FNF and HTS intact. * Rozina Eli RN - 12/12/2023 3:34 AM CDT A&Ox4. Frontal headache reported that seems to increase in severity following each unresponsiveepisode. Imitrex dose given with significant relief, PRN tylenol used overnight. Experienced x5 unresponsive episodes at start of shift, eyes fluttering, PERRL, not following commands, feels dizzy following episodes, times written on VEEG. Car Wash Manager shined light in pts eyes during episode, when asked pt did not recall this happening during episode. Throat pain reported this AM, tonsils on the right appear swollen, pain with swallowing- pain medications given per NOV. Up SBA, continent, no neuro changes, makes needs known * Maria Dolores Lara RN - 12/11/2023 7:43 PM CDT Patient alert/oriented x4. Endorses headache that worsens with unresponsive episodes. Patient had x4 family/friend reported spells and x2 RN observed spells, each lasting 40-60 seconds. Patient remained nonverbal for duration of episode, pupils equal and reactive, noted patients eyelids fluttering during episode, reports being aware these episodes are happening but unable to speak or follow commands. PRN tylenol and ibuprofen given for BONILLA with minimal relief. Daisy VALE paged, gave order forimitrex 25mg. Night RN will follow up and administer med. [facility]. Practitioner Notified Note Name of Practitioner notified: Carlton Wynne Time of Practitioner notification: 7:10 PM Reason: [id number]. A Crombie. C/o ongoing throbbing BONILLA, prn apap & ibuprofen ineffect. Can you please order something stronger? Thx Response: Imitrex 25mg ONCE * Carlton Wynne MD - 12/11/2023 7:11 PM CDT Hospital Medicine Cross Cover. Received page from RN. BONILLA resistant to IBU and APAP. I ordered one time dose of Imitrex. Carlton Wynne MD 12/11/23 7:11 PM [facility] Medicine * Jean Robins MD - 12/11/2023 2:03 PM CDT Images from the original note were not included. PROGRESS NOTE Patient's name: Aj Sam Attending: Jean Robins MD Date of Admission: 12/10/2023 Date of Service: 12/11/2023 Summary Statement: 18 y.o. year-old female with no significant past medical history who was admitted on 12/10/2023 with repeat spells of altered consciousness Subjective: Chart reviewed. Patient denies any headache, chest pain, dyspnea, fever, chills, or any other acutecomplaints during my visit today. She did have 2 spells overnight were no abnormalities on telemetry were found. Neurology was consulted this morning. I discussed the case with Neurology, will continue with EEG as noted Objective/Physical Exam: Most Recent Vital Signs: Min and Max Vital Signs (24 hours): Temp: 98.1 ??F (36.7 ??C) BP: 108/65 Pulse: 82 Resp: 16 SpO2: 98 % Temp Min: 98.1 ??F (36.7 ??C) Max: 98.3 ??F (36.8 ??C) BP Min: 108/65 Max: 154/78 Pulse Min: 63 Max: 99 Resp Min: 14 Max: 22 SpO2 Min: 97 % Max: 100 % Gen: No acute distress, sitting up in bed HEENT: Gaze conjugate, MMM Resp: clear to auscultation bilaterally, no wheezing or crackles appreciated CV: regular rate & rhythm, no murmurs appreciated, radial pulses 2+ bilaterally Abd/GI: soft, nondistended, nontender, no masses appreciated, positive bowel sounds : no wilcox MSK: warm, well perfused Neuro: alert, interactive Skin: no rashes, ulcerations on exposed skin surfaces Labs/Imaging: Reviewed, pertinent findings noted below/incorporated into assessment & plan Recent Labs 12/10/23 1520 WBC 11.6* HGB 13.8 PLTS 347 SODIUM 138 K 3.6 BUN 8 CREATININE 0.71 ANIONGAP 9 Assessment & Plan: Possible syncope Spells of altered cognition: Patient reports least 15 episodes in the past several days. She deniesany other drug use aside from THC. No history of this in the past, no family history of similar disorder. --appreciate neurology consult --continue EEG overnight --continue telemetry Anxiety Panic attacks States years ago she was on a daily med for anxiety but stopped taking it as it didn't work. Anything can make her anxious. Denies any recent new stressors. - pt considering starting an SSRI Emesis, resolved She and her father shared a meal on 12/06 and they both then experienced multiple episodes of emesis.No GI sx since then. This could have made her dehydrated but it would be strange to cause syncope (with normal BMP) multiple days later. Heart murmur 2020 echo reassuring FEN: regular PPx: low risk Lines/Catheters: PIV Level of Care: general Dispo: home once work up is complete Code Status/Goals of Care: Full Jean oRbins MD Hospitalist, [facility] Pager: See Santa This note was created with voice recognition software and may have inadvertent word substitutions. documented in this encounter Procedure Notes * Priscilla Valles MD - 12/11/2023 12:14 PM CDT Inpatient EEG Report Indication: episodes of LOC Ordering Provider: Dr. Grace EEG#: [id number] Date of Service: Start: 12/11/23 at 08:05 End: 12/12/23 at 07:25 Pertinent Medications: Current Facility-Administered Medications Medication Dose Route Frequency acetaminophen (TYLENOL) tablet 650 mg 650 mg Oral Q6H PRN benzocaine-menthol (Chloraseptic) lozenge 1 Lozenge 1 Lozenge Oral Q2H PRN calcium carbonate (TUMS) chewable tablet 1,000 mg 1,000 mg Oral Q4H PRN melatonin tablet 6 mg 6 mg Oral At bedtime PRN Technical Description: The continuous inpatient video EEG was recorded using [employer] digital EEG equipment. The electrodes were measured and applied according to the international 10-20 system. State of patient: Awake, Drowsy, and Sleep Activating Procedures: photic stimulation EEG description: Background: The awake background showed appropriate organization with anterior-posterior voltage and frequency gradients. There was a posterior dominant rhythm of 11 Hertz, which was symmetrical and showed normal reactivity. Attenuation of the occipital rhythms accompanied drowsiness. The sleep background contained well formed and symmetric architecture including vertex waves, spindles, and K-complexes. Throughout the recording, there were no epileptiform discharges, paroxysmal features, focal features, or significant interhemispheric asymmetries. Clinical Events: No button pushes but multiple events of interest captured noted at 16:19, 16:32, and 18:53 on 12/10. There were no ictal patterns or EEG abnormalities around the time of the events. A normal posterior dominant rhythm was visible during the events. Ictal: None Hyperventilation: N/A Photic stimulation: No activation of abnormal activity EKG: NSR including during the events EEG Impression: This is a normal continuous inpatient video EEG during wakefulness and sleep. Events of unresponsiveness captured had no EEG correlate suggesting they are not seizures. There were no epileptiform discharges or seizures during this recording period. Report was given to Dr. Lesly Valles MD documented in this encounter Consult Notes * Neli Grace MD - 12/11/2023 7:21 AM CDTAssociated Order(s): NEUROLOGY CONSULT Neurology Inpatient Consultation Date: 12/11/2023 Consult Requested By: Hospital Medicine Reason for Consult: Syncope Assessment/Recommendations: Aj Sam is a 18 y.o. female with pmhx of anxiety, panic attacks, and a heart murmur who presented to the ED with multiple days of lightheadedness and episodes of syncope. She continues to have recurrent episodes while in the hospital that are not associated with motor symptoms or prodromal symptoms. Her syncope usually lasts around 1-2 minutes per episode and she returns to her baseline within a minute or two after recovering. Labs and imaging including MRI brain wwo have been unrevealing so far. We discussed the need to avoid high risk activities such as driving vehicles for at leastthe next 3 months given these syncopal episodes. Recurrent spells described as light-headedness and unresponsiveness lasting 1-2 minutes. No significant postictal. No reported orthostatic changes. Since 12/09/2023. - 24h EEG, will follow up results tomorrow - no driving for 3 months and patient need to report to [facility]. - cautions any activity that potential harm self or other people should she have an event losing motor control - follow-up with neurology outpatient in about 2 months. Clifford An, MS3 [employer] Reviewed EEG and talked with our neurophysiologist so far no seizures. No clinical spells either documented. Attest: I have reviewed and edited the documentation by the MS3. I personally examined the patient and reviewed relevant imaging, labs, and test results. Total time spent > 55 minutes on this encounter, including history taking, chart review, examination of patient, coordinating with participating team (teams) and/or care givers, and documenting the visit. Neli Grace MD; PhD [email or web address] History of Present Illness: Aj Sam is a 18 y.o. female with past medical history of anxiety, panic attacks, and a heart murmur who presented to the ED following 2 days of syncopal episodes and lightheadedness. Workup at an outside hospital was reassuring including labs and CT head. Episodes continued which prompted her presentation to ED. She has not had episodes like this in the past. She reports that she did use thc the evening before these episodes began but it is unclear if this thc use is new to her or not. No family or personal history of seizure disorder. Denies any inducing factors. No sleep deprivation or recent particular stress. Patient is exercising regularly. 12/10/2023 documented an episode of fainting/syncope lasting 5-10 seconds. 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 Nurse wanting right away and patient was back to normal self already. Friends reported patient was out for about 2 to 2.5 minutes. She was breathing normally. No report of pale looking. She had 2/[address] chest pain falling episode. She reports each time after an episode shewould feel it. The pain would go away after 10 minutes or so. Past Medical/Family/Social history No known family history of neurologic/seizure disorders or sudden cardiac is allergic to banana and citrullus vulgaris. ROS: A complete 10 point review of systems was obtained, the pertinent positives and negatives are reviewed above and in history present illness. Physical Examination Vitals: 12/10/23 1855 12/10/23 2153 12/10/23 2155 BP: 133/84 132/61 (!) 146/82 Pulse: 75 70 78 Resp: 16 Temp: 98.1 ??F (36.7 ??C) SpO2: 98% 100% Weight: General: Young F, resting in bed comfortably, in NAD Head: Atraumatic, normocephalic, without obvious abnormality HEENT: Oral mucosa dry. Throat clear. Respiratory: Respirations non-labored in RA Cardiovascular: Grossly perfused peripherally Psychiatric: Cooperative and appropriate mood & affect. A&Ox4. Follows two-step commands. EOMs intact. LT intact on face. Symmetric and full facial expressions. SCMs 5/5. Tongue midline. Strength 5/5 throughout. No pronator drift. FNF and HTS intact. documented in this encounter OR Notes * H&P - Carlton Wynne MD - 12/10/2023 4:48 PM CDT Images from the original note were not included. [facility] Medicine History & Physical Patient name: Aj Sam : 2005 Date of Admission: 12/10/2023 2:27 PM Date of Service: 12/10/2023 Attending/Staff: Carlton Wynne MD Snack Bar Cashier Used: no Chief Complaint Syncope History of Present Illness 18 y.o. female with PMH of anxiety, panic attacks, and heart murmur who presented to ED with hx of multiples episodes of syncope. Pt is accompanied by her sister and a friend. Pt states that she has been in her usual state of health until late last week. Pt states that she and her father shared a meal on 12/06 and the both of them then experienced multiple episodes of emesis. Pt states that she felt well the next day on 12/07. She smoked a THC e-cigarette that afternoon. Later that night she became dizzy while grabbing a pop in a gas station. She says that for the rest of the day she felt dizzy and weak. She awoke 12/08 feeling well. However, she would become dizzy when bending over and while in the shower. Later that day while at a truck meet she was standing and had an episode of syncope. Her sister/friend says she was unconscious for 1- 2 minutes. They deny color change or apnea. Pt regained consciousness and was not confused. She then had another similar episode of syncope while sitting in a truck. Pt denies prodromal sx such as dyspnea, chest pain, headache. Pt was then taken to [place] ED where CBC, BMP, glucose, TSH, HCG, D-dimer testing was reassuring. CT head without acute process. Pt discharged with meclizine. Pt states that the episodes of syncope have continued today and she has had probably 15 episodes.Multiple episodes have occurred while sitting and lying. Pt says she has had at least four episodes in the ED today. She has been vitally stable. CBC, BMP, troponin, TSH, HCG, D-dimer all normal. ECG with incomplete RBBB. Pt given NS 1L bolus. Pt says that during some of these episodes her Apple watch report a HR of 170. Pt reports long hx of anxiety and panic attacks. She tells me that years ago she was on a daily medfor anxiety but stopped taking it as it didn't work. She reports that anything can make her anxious including work, family, social life. She denies any recent new stressors. Denies EtOH use and and recreational drug use besides THC. Denies family hx of unexpected in a young individual. She does have CAD on maternal side. Reports headache but says she often gets headaches. Denies diarrhea, fever, chills, change in vision, dyspnea, dysuria, neck pain, trauma. Review of Systems Review of Systems Complete Review of Systems is negative, unless noted in HPI Past Medical History anxiety, panic attacks, and heart murmur Past Surgical History None Family History Heart disease in maternal grand father Social History Social History Socioeconomic History Marital status: Not on file Spouse name: Not on file Number of children: Not on file Years of education: Not on file Highest education level: Not on file Occupational History Not on file Tobacco Use Smoking status: Not on file Smokeless tobacco: Not on file Substance and Sexual Activity Alcohol use: Not on file Drug use: Not on file Sexual activity: Not on file Other Topics Concern Not on file Social History Narrative Not on file Social Determinants of Health Financial Resource Strain: Low Risk (10/05/2023) Received from [facility] Financial Resource Strain Difficulty of Paying Living Expenses: 3 Difficulty of Paying Living Expenses: Not on file Food Insecurity: No Food Insecurity (10/05/2023) Received from [facility] Food Insecurity Worried About Running Out of Food in the Last Year: 1 Transportation Needs: No Transportation Needs (10/05/2023) Received from [facility] Transportation Needs Lack of Transportation (Medical): 1 Intimate Partner Violence: Not on file Housing Stability: Low Risk (10/05/2023) Received from [facility] Housing Stability Unable to Pay for Housing in the Last Year: 1 Medications None Allergies Patient has no known allergies. Physical Exam Vitals: Patient Vitals for the past 8 hrs: BP Temp Temp src Pulse Resp SpO2 12/10/23 1615 134/77 -- -- 76 (!) 21 99 % 12/10/23 1600 129/74 -- -- 69 17 99 % 12/10/23 1545 (!) 140/87 -- -- 78 17 97 % 12/10/23 1530 (!) 145/91 -- -- 80 18 98 % 12/10/23 1515 (!) 154/78 -- -- 94 15 99 % 12/10/23 1500 136/71 -- -- 84 19 99 % 12/10/23 1445 (!) 144/84 -- -- 99 (!) 22 99 % 12/10/23 1411 (!) 151/78 98.3 ??F (36.8 ??C) Oral 98 16 98 % Constitutional: NAD, lying in bed HEENT: PERRLA, EOMI Neck: No adenopathy. Chest: CTAB on RA Cardiovascular: RRR, no murmurs Abdomen: soft, non tender Musculoskeletal: Normal mass Extremities: Moving all four Lymphatic: No edema Skin: No bruising Neurological: Aox3, CN II-XII intact Labs/Imaging/Other Labs: I have reviewed labs from this admission. Recent Labs 12/10/23 1520 SODIUM 138 K 3.6 CHLORIDE 108 BUN 8 CREATININE 0.71 GLUCOSE 76 Recent Labs 12/10/23 1520 WBC 11.6* HGB 13.8 HCT 43.1 EKG: Reviewed personally by me. ECG reviewed per my interpretation, incomplete RBBB Imaging: EXAM: CT HEAD WITHOUT IV CONTRAST 12/09/23 FINDINGS: There is no evidence of acute intracranial hemorrhage. There is no intracranial mass. There is no midline shift. Ventricles and sulci appear within normal limits. There is no evidence of acute infarction. The skull is intact, with no fracture or lytic lesion. Incidental note is made of mild calcification of the anterior falx. Assessment/Plan 18 y.o. female with PMH of anxiety, panic attacks, and heart murmur who presented to ED with hx of multiples episodes of syncope. Pt is accompanied by her sister and a friend. Syncope Dizziness Pt reports probably 15 episodes of syncope in past two days. She smoked a reportedly THC containing e-cigarette on 12/07 before these sx started. Multiple syncopal episodes have occurred while sitting and lying. Bystanders deny color change or apnea during episodes. No confusion after the episodes Reports dizziness when bending over and while in the shower. OSH CT head without acute process. Pt says she has had at least four episodes in the ED today but monitors reported normal vitals. CBC, BMP, TSH all normal. ECG with incomplete RBBB but trop and d-dimer wnl. No family hx of unexpected in a young individual. Reports headache but says she often gets headaches. Broad ddx includes reaction from recreational drug, vertigo, seizure disorder, arrhythmia, posturalorthostatic tachycardia syndrome, anxiety, narcolepsy, conversion disorder. - Tele - UDS - orthostatic vitals - consider EEG - if Telemetry monitoring is reassuring could consider MRI brain - Echo unlikely to be useful at thus time as normal echo in 2019 and no other cardiac sx. - consider outpatient Vestibular rehab as some of these sx do sound like vertigo. Update #1: Pt's RN in W2 notified me that pt had another episode of loss of consciousness after arriving to the floor. I saw pt at bedside. She was accompanied by four guests. Pt says she feels fine.She was sitting in bed at the time of the episode. The four guests say pt was unconsciousness for approx one minute. They say that she looked like she fell asleep. Pt's only sx now is some mild L sided chest pain. Unfortunately pt's telemetry was malfunctioning during the incident. I discussed with RN who will swap out the Tele packs. Update #2: Pt's RN notified me that pt had another episode at approx 19:40. I reviewed pt's telemetry which was NSR at that time. I came to bedside to discuss this with pt and she tells me she just awoke from another episode. This one lasted 2-3 minutes per the guests. Again, pt was sitting in bed and became unconsciousness. She had previously mentioned some L sided chest pain with previous episodes but there was no chest pain with this episode. She tells me she did feel dizzy prior to the episode and she now feels fatigued. I pushed on the pt's chest at the location she reports pain and I daxa to reproduce the pain. As arrhyhtmia is now less likely I am more concerned for seizure. I tell pt she would benefit from MRI brain and EEG, she is agreeable. I placed MRI order and Neuro consult. Anxiety Panic attacks States years ago she was on a daily med for anxiety but stopped taking it as it didn't work. Anything can make her anxious. Denies any recent new stressors. - pt considering starting an SSRI Emesis, resolved She and her father shared a meal on 12/06 and they both then experienced multiple episodes of emesis.No GI sx since then. This could have made her dehydrated but it would be strange to cause syncope (with normal BMP) multiple days later. Heart murmur 2020 echo reassuring FEN: regular PPx: low risk Lines/Catheters: PIV Level of Care: general Dispo: home once syncope work up is complete Code Status/Goals of Care: Full The patient is being admitted to the hospital for the management of syncope. Billing based on: Time Total time for the visit was 105 minutes including, but not limited to, [id number] time spentreviewing records, counseling, and coordination of care. Carlton Wynne MD [facility] Medicine, [facility] documented in this encounter ED Notes * Slime Plummer MD - 12/10/2023 3:29 PM CDT [facility] Emergency Medicine Visit Note Chief Complaint: Syncope HPI 18 y.o. female with hx of documented murmur, anxiety who presents syncope Patient arrives with friends. She would presented to [facility] last night after she had had several syncopal episodes during the day. These were prodrome, she felt dizzy before. Had mild chest pain that was not associated with the episodes. Not vomiting or having diarrhea. No recent illness. No history of syncopal episodes. Has been eating. She had a CT PE study and labs in the ER last night. She was told these were normal. She came back here after she was discharged with follow-up and instructions for a Holter monitor, since then she has had what friends estimated 15 syncopal episodes.No head trauma or hitting of her head. Triage Vitals [12/10/23 1411] Temp 98.3 ??F (36.8 ??C) Temp src Oral Pulse 98 Resp 16 BP (!) 151/78 SpO2 98 % Physical Exam Const: Well appearing Head: No signs of trauma Eyes: Normal pupils, no scleral icterus, no conjunctival injection ENT: Freely moving neck, mucous membranes moist CV: Normal rate, regular rhythm, peripheral pulses present Resp: Non-labored respirations GI: Soft, non-distended : Deferred MSK: No gross deformities, no edema Skin: Warm, no rashes, no diaphoresis Neuro: Alert, Moving all 4 extremities appropriately Psych: Behavior normal for situation MDM: Old records and nursing notes reviewed as available. 18 y.o. female who presents with syncopal episode Vital signs stable, patient was awake. Has not had a syncopal episode here. Will obtain labs including D-dimer, hCG, lytes trope CBC. EKG shows incomplete right bundle. Fluids ordered. Anticipate based on the number of syncopal episodes that the patient has had that she will require admission for telemetry rather than outpatient Holter monitoring Slime Plummer MD ED Course as of 12/10/23 1655 Sun Dec 10, 2023 1450 ATTENDING: I personally saw the patient, performed gonzalez elements of the visit, and supervised patient care with the head men's tennis coach. MDM: multiple episodes of syncope. EKG sinus, intervals normal. Will need work up. Admit likely. [KG] 1501 Sign out received, assumed care at this time. Presenting with multiple syncopal episodes. Evaluated yesterday at outside ED, negative work-up. Since then has had 15 episodes of syncope. Work-up pending. Likely admit. [JS] 1537 Complete Blood Count -no Diff(!) Mild leukocytosis to 11.6. hemoglobin normal. [JS] 1556 HCG, Serum Qual: Negative Not [JS] 1556 D Dimer, Quant: 0.38 PE unlikely [JS] 1620 Troponin I: <0.01 ACS unlikely [JS] 1620 Basic Metabolic Panel Within normal limits [JS] 1627 Magnesium: 2.0 normal [JS] 1646 TSH, Sensitive: 1.32 Within normal limits [JS] ED Course User Index [JS] Uma Vanessa PA-C [KG] Carmelita Arnold MD Clinical Impressions as of 12/10/23 1655 Syncope, unspecified syncope type * Maris Bauman RN - 12/10/2023 3:20 PM CDT While policy writer sales was at the bedside Aj reported experiencing generalized chest pain with NSR on the monitor and then her eyes closed. Her friends were at the bedside and said she's passed out. Rhythm on the monitor remained sinus, lid lash was present during this event and she aroused within 5 seconds with light sternal pressure. ER provider informed of event. documented in this encounter Plan of Treatment Scheduled Referrals Name Type Priority Associated Diagnoses Orde r Schedule Primary Care Follow-up Referral Routine Syncope, unspecified syncope type Ordered: 12/13/2023 Physical Therapy Referral Routine Syncope, unspecified syncope type Ordered: 12/13/2023 Event Monitor Referral Routine Syncope, unspecified syncope type Ordered: 12/13/2023 Neurology Referral - Adults Referral Routine Syncope, unspecified syncope type Ordered: 12/13/2023 documented as of this encounter Procedures Procedure Name Priority Date/Time Associated Diagnosis Comments EJECTION FRACTION Routine 12/13/2023 8:5 8 AM CDT CARDIAC ROUTINE ECHOCARDIOGRAM Routine 12/13/2023 8:58 AM CDT BASIC METABOLIC PANEL Routine 12/13/2023 6:37 AM CDT COMPLETE BLOOD COUNT-NO DIFF Routine 12/13/2023 6:37 AM CDT CORTISOL Routine 12/13/2023 6:37 AM CDT MAGNESIUM Routine 12/13/2023 6:37 AM CDT RESPIRATORY PANEL Routine 12/12/2023 7:0 0 PM CDT IV INSERTION(LAB TO PERFORM) STAT 12/12/2023 4:52 PM CDT BLOOD CULTURE Routine 12/12/2023 4:52 PM CDT BLOOD CULTURE Routine 12/12/2023 4:52 PM CDT BLOOD CULTURE Routine 12/12/2023 4:52 PM CDT BLOOD CULTURE Routine 12/12/2023 4:52 PM CDT BASIC METABOLIC PANEL STAT 12/12/2023 4:52 PM CDT COMPLETE BLOOD COUNT-NO DIFF STAT 12/12/2023 4:52 PM CDT ECG 12-LEAD ROUTINE(LAB PERFORM) STAT 12/12/2023 1:01 PM CDT ECG-ROUTINE 12 LEAD; INTRPT & REPRT STAT 12/12/2023 12:57 PM CDT STREP GROUP A, MOLECULAR DETECTION STAT 12/12/2023 12:18 PM CDT EEG EXTENDED MONITORING Routine 12/12/2023 7:15 AM CDT INPATIENT TELEMETRY MONITORING Routine 12/12/2023 7:00 AM CDT INPATIENT TELEMETRY MONITORING Routine 12/12/2023 5:40 AM CDT INPATIENT TELEMETRY MONITORING Routine 12/11/2023 11:00 PM CDT EEG EXTENDED MONITORING Routine 12/11/2023 8:08 AM CDT INPATIENT TELEMETRY MONITORING Routine 12/11/2023 7:05 AM CDT MR BRAIN W/WO IV CONT Routine 12/11/2023 3:14 AM CDT RAPID DRUG PANEL, URINE Routine 12/10/2023 9:57 PM CDT INPATIENT TELEMETRY MONITORING Routine 12/10/2023 7:35 PM CDT LIVER PANEL(HEPATIC FUNCTION PANEL) Add-On 12/10/2023 3:20 PM CDT D DIMER, QUANTITATIVE STAT 12/10/2023 3:20 PM CDT TSH, SENSITIVE STAT Add-On 12/10/2023 3:20 PM CDT BASIC METABOLIC PANEL STAT 12/10/2023 3:20 PM CDT TROPONIN I Specified Time 12/10/2023 3:20 PM CDT COMPLETE BLOOD COUNT-NO DIFF STAT 12/10/2023 3:20 PM CDT HCG,QUALITATIVE, SERUM STAT 12/10/2023 3:20 PM CDT MAGNESIUM STAT Add-On 12/10/2023 3:20 PM CDT ECG-ROUTINE 12 LEAD; INTRPT & REPRT STAT 12/10/2023 2:21 PM CDT documented in this encounter Results * EJECTION FRACTION (12/13/2023 8:58 AM CDT) EF 65 % PROSOLV EF test type ECHO PROSOLV 12/13/2023 8:58 AM CDT Sid Starks MD [facility] CAT H LAB/RH Performing Organization Address City/[facility]/ZIP Co de Phone Number [address] [place] [address] * CARDIAC ROUTINE ECHOCARDIOGRAM (12/13/2023 8:58 AM CDT) 12/13/2023 8:58 AM CDT Narrative PROSOLV - 12/13/2023 10:44 AM CDT Summary ??1. Normal sinus rhythm during study. ??2. Normal LV size with normal wall thickness. Calculated biplane LVEF 65-70%. No regional wall motion abnormalities. (Normal function). Indeterminate diastolic function. ??3. Normal RV size and systolic function. ??4. There is mild tricuspid valve regurgitation. ??5. IVC is small in size and responsive to inspiration indicating normal or low RA pressure. ??6. A prior study is not available for comparison. Report Signatures Finalized by Danielle Castillo on 12/13/2023 10:44 AM Procedure Note Danielle Castillo MD - 12/13/2023 Summary 1. Normal sinus rhythm during study. 2. Normal LV size with normal wall thickness. Calculated biplane [id number]%. No regional wall motion abnormalities. (Normal function).Indeterminate diastolic function. 3. Normal RV size and systolic function. 4. There is mild tricuspid valve regurgitation. 5. IVC is small in size and responsive to inspiration indicating normalor low RA pressure. 6. A prior study is not available for comparison. Report Signatures Finalized by Danielle Castillo on 12/13/2023 10:44 AM Sid Starks MD [facility] ECH O/RH Performing Organization Address City/[facility]/ZIP Co de Phone Number [address] [place] [address] * Cortisol (12/13/2023 6:37 AM CDT) Cortisol 12.2 2.9 - 19.4 mcg/dL 12/13/2023 7:39 AM CDT [facility] Blood Venipuncture Butterfly / Unknown 12/13/2023 6:37 AM CDT 12/13/2023 6:53 AM CDT Narrative [facility] - 12/13/2023 7:39 AM CDT Expected values AM (before 10am): 3.7-19.4 mcg/dL PM (after 5pm): 2.9-17.3 mcg/dL Keri Weston PA-C LAB_1 Performing Organization Address [facility] Co de Phone Number [address] * Magnesium (12/13/2023 6:37 AM CDT) Magnesium 1.9 1.6 - 2.6 mg/dL 12/13/2023 7:22 AM [facility] Blood Venipuncture Butterfly / Unknown 12/13/2023 6:37 AM CDT 12/13/2023 6:53 AM CDT Keri Weston PA-C LAB_1 Performing Organization Address [facility] Co de Phone Number [address] * (ABNORMAL) Basic Metabolic Panel (12/13/2023 6:37 AM CDT) Sodium 137 136 - 145 mmol/L 12/13/2023 7:22 AM [facility] Potassium 3.9 3.5 - 5.1 mmol/L 12/13/2023 7:22 AM [facility] Chloride 110(H) 98 - 109 mmol/L 12/13/2023 7:22 AM [facility] CO2 21 20 - 29 mmol/L 12/13/2023 7:22 AM [facility] Anion Gap 6(L) 7 - 16 mmol/L 12/13/2023 7:22 AM [facility] Calcium 8.6 8.4 - 10.4 mg/dL 12/13/2023 7:22 AM [facility] BUN 7 7 - 26 mg/dL 12/13/2023 7:22 AM [facility] Creatinine 0.64 0.55 - 1.02 mg/dL 12/13/2023 7:22 AM [facility] Glucose 93 70 - 100 mg/dL 12/13/2023 7:22 AM [facility] Comment:The given reference range is for the fasting state. Non-fasting reference range for glucose is 70 - 180 mg/dL. GFR, Estimated >60 >60 mL/min/1.7 3m2 12/13/2023 7:22 AM [facility] Blood Venipuncture Butterfly / Unknown 12/13/2023 6:37 AM CDT 12/13/2023 6:53 AM CDT Keri Weston PA-C LAB_1 Performing Organization Address City/State/[facility] Co de Phone Number [address] [address], [facility] * (ABNORMAL) Complete Blood Count-No Diff (12/13/2023 6:37 AM CDT) WBC 16.0(H) 3.5 - 10.5 x10(9)/L 12/13/2023 7:00 AM [facility] RBC 4.32 3.90 - 5.03 x10(12)/L 12/13/2023 7:00 AM [facility] Hemoglobin 12.7 12.0 - 15.5 g/dL 12/13/2023 7:00 AM [facility] HCT 39.5 34.9 - 44.5 % 12/13/2023 7:00 AM [facility] MCV 91.4 80.0 - 100.0 fL 12/13/2023 7:00 AM [facility] MCH 29.4 27.6 - 33.3 pg 12/13/2023 7:00 AM [facility] MCHC 32.2 31.5 - 35.2 g/dL 12/13/2023 7:00 AM [facility] RDW 13.4 11.9 - 15.5 % 12/13/2023 7:00 AM [facility] Platelets 249 150 - 450 x10(9)/L 12/13/2023 7:00 AM CDT [facility] Automated NRBC 0 <=0 /100 WBC 12/13/2023 7:00 AM CDT [facility] Blood Venipuncture Butterfly / Unknown 12/13/2023 6:37 AM CDT 12/13/2023 6:53 AM CDT Keri Weston PA-C LAB_1 Performing Organization Address City/State/[facility] de Phone Number [address] * Respiratory Panel (12/12/2023 7:00 PM CDT) Pathologist [facility] [place] Adenovirus Not Detected Not Detected 12/13/2023 1:40 AM CDT [facility] Coronavirus 229E Not Detected Not Detected 12/13/2023 1:40 AM CDT [facility] Coronavirus HKU1 Not Detected Not Detected 12/13/2023 1:40 AM CDT [facility] Coronavirus NL63 Not Detected Not Detected 12/13/2023 1:40 AM CDT [facility] Coronavirus OC43 Not Detected Not Detected 12/13/2023 1:40 AM CDT [facility] COVID-19 Interpretation Not Detected Not Detected 12/13/2023 1:40 AM CDT [facility] Human Metapneumovirus Not Detected Not Detected 12/13/2023 1:40 AM CDT [facility] Human Rhinovirus/Enterov irus Not Detected Not Detected 12/13/2023 1:40 AM CDT [facility] Influenza A Not Detected Not Detected 12/13/2023 1:40 AM CDT [facility] Influenza B Not Detected Not Detected 12/13/2023 1:40 AM CDT [facility] Parainfluenza Virus 1 Not Detected Not Detected 12/13/2023 1:40 AM CDT [facility] Parainfluenza Virus 2 Not Detected Not Detected 12/13/2023 1:40 AM CDT [facility] Parainfluenza Virus 3 Not Detected Not Detected 12/13/2023 1:40 AM CDT [facility] Parainfluenza Virus 4 Not Detected Not Detected 12/13/2023 1:40 AM CDT [facility] Respiratory Syncytial Virus Not Detected Not Detected 12/13/2023 1:40 AM CDT [facility] Bordetella Parapertussis Not Detected Not Detected 12/13/2023 1:40 AM CDT [facility] Bordetella pertussis Not Detected Not Detected 12/13/2023 1:40 AM CDT [facility] Chlamydia pneumoniae Not Detected Not Detected 12/13/2023 1:40 AM CDT [facility] Mycoplasma Pneumoniae Not Detected Not Detected 12/13/2023 1:40 AM CDT [facility] Swab (Source Required) (Nasopharyngeal swab) Non-blood Collection / Unknown 12/12/2023 7:00 PM CDT 12/12/2023 7:06 PM CDT Sid Starks MD LAB_1 [facility] [address] * (ABNORMAL) BASIC METABOLIC PANEL (12/12/2023 4:52 PM CDT) [facility] Sodium 136 136 - 145 mmol/L 12/12/2023 5:36 PM [facility] Potassium 3.8 3.5 - 5.1 mmol/L 12/12/2023 5:36 PM [facility] Chloride 104 98 - 109 mmol/L 12/12/2023 5:36 PM [facility] CO2 21 20 - 29 mmol/L 12/12/2023 5:36 PM [facility] Anion Gap 11 7 - 16 mmol/L 12/12/2023 5:36 PM [facility] Calcium 9.3 8.4 - 10.4 mg/dL 12/12/2023 5:36 PM [facility] BUN 8 7 - 26 mg/dL 12/12/2023 5:36 PM [facility] Creatinine 0.82 0.55 - 1.02 mg/dL 12/12/2023 5:36 PM [facility] Glucose 103(H) 70 - 100 mg/dL 12/12/2023 5:36 PM [facility] Comment:The given reference range is for the fasting state. Non-fasting reference range for glucose is 70 - 180 mg/dL. GFR, Estimated >60 >60 mL/min/1.7 3m2 12/12/2023 5:36 PM T [facility] Blood Venipuncture / Unknown 12/12/2023 4:52 PM CDT 12/12/2023 5:01 PM CDT Keri Weston PA-C LAB_1 [place] [address], [facility] * (ABNORMAL) COMPLETE BLOOD COUNT-NO DIFF - Discharge Decision (12/12/2023 4:52 PM CDT) WBC 22.6(H) 3.5 - 10.5 x10(9)/L 12/12/2023 5:34 PM T [facility] RBC 4.49 3.90 - 5.03 x10(12)/L 12/12/2023 5:34 PM [facility] Hemoglobin 13.3 12.0 - 15.5 g/dL 12/12/2023 5:34 PM [facility] HCT 40.6 34.9 - 44.5 % 12/12/2023 5:34 PM [facility] MCV 90.4 80.0 - 100.0 fL 12/12/2023 5:34 PM [facility] MCH 29.6 27.6 - 33.3 pg 12/12/2023 5:34 PM [facility] MCHC 32.8 31.5 - 35.2 g/dL 12/12/2023 5:34 PM [facility] RDW 13.2 11.9 - 15.5 % 12/12/2023 5:34 PM [facility] Platelets 305 150 - 450 x10(9)/L 12/12/2023 5:34 PM [facility] Automated NRBC 0 <=0 /100 WBC 12/12/2023 5:34 PM [facility] Blood Venipuncture / Unknown 12/12/2023 4:52 PM CDT 12/12/2023 5:01 PM CDT Keri Weston PA-C LAB_[address] * Blood Culture (12/12/2023 4:52 PM CDT) Blood Culture No Growth at 5 Days RH LAB ETEST METHOD 12/17/2023 6:00 PM CDT [facility] Blood VENIPUNCTURE / Unknown Venipuncture / Unknown 12/12/2023 4:52 PM CDT 12/12/2023 5:00 PM CDT Keri Weston PA-C LAB_1 Performing Organization Address [facility]/ZIP Co de Phone [address] * Blood Culture (12/12/2023 4:52 PM CDT) Blood Culture No Growth at 5 Days RH LAB ETEST METHOD 12/17/2023 6:00 PM CDT [facility] Blood VENIPUNCTURE / Unknown Venipuncture / Unknown 12/12/2023 4:52 PM CDT 12/12/2023 5:00 PM CDT Keri Weston PA-C LAB_1 Performing Organization Address [facility] Co de Phone [address] * IV Insertion, LST Perform (12/12/2023 4:52 PM CDT) IV INSERTION, LST PERFORM (LAB) Done 12/12/2023 8:00 PM CDT [facility] Other Specimen Type Venipuncture / Unknown 12/12/2023 4:52 PM CDT 12/12/2023 6:37 PM CDT Keri Weston PA-C LAB_1 Performing Organization Address [facility]/ZIP Co de Phone Number [address] * ECG 12-Lead Routine (Lab perform) (12/12/2023 1:01 PM CDT) EKG Completed 12/12/2023 4:00 PM CDT [facility] Other Specimen Type Non-blood Collection / Unknown 12/12/2023 1:01 PM CDT 12/12/2023 2:22 PM CDT Sid Starks MD LAB_1 Performing Organization Address [facility]/ZIP Co de Phone Number [facility] [address] [place] [address], [facility] * Ecg 12-Lead Routine (MUSE) (12/12/2023 12:57 PM CDT) Ventricular Rate 119 BPM [facility] Atrial Rate 119 BPM [facility] P-R Interval 128 ms [facility] QRS Duration 84 ms [facility] QT 306 ms [facility] QTc 430 ms [facility] P [place] 26 degrees [facility] R [place] 21 degrees [facility] T [place] 16 degrees [facility] 12/12/2023 12:5 7 PM CDT Narrative [facility] - 12/12/2023 1:44 PM CDT Sinus tachycardia Otherwise normal ECG When compared with ECG of 10-DEC-2023 14:21, Vent. rate has increased BY ??40 BPM Incomplete right bundle branch block is no longer Present Confirmed by Amarjit Philippe ([id number]) on 12/12/2023 1:44:00 PM Procedure Note Amarjit Philippe MD - 12/12/2023 Sinus tachycardia Otherwise normal ECG When compared with ECG of 10-DEC-2023 14:21, Vent. rate has increased BY 40 BPM Incomplete right bundle branch block is no longer Present Confirmed by Amarjit Philippe ([id number]) on 12/12/2023 1:44:00 PM Sid Starks MD EKG Performing Organization Address [facility]/ZIP Co de Phone Number [facility] [address] [place] [address] * (ABNORMAL) Strep Group A by PCR (12/12/2023 12:18 PM CDT) Group A Strep Detected( A) Not Detected 12/12/2023 1:23 PM CDT [facility] Comment:Methodology: Qualita tive real-time PCR assay Swab (Source Required) THROAT SWAB / Unknown Non-blood Collection / Unknown 12/12/2023 12:18 PM CDT 12/12/2023 12:19 PM CDT Keri Weston PA-C LAB_1 Performing Organization Address [facility] Co de Phone Number [address] * INPATIENT TELEMETRY MONITORING (12/12/2023 7:00 AM CDT) TELE P-R INTERVAL 0.11 [facility] TELE QRS DURATION 0.11 [facility] TELE R-R INTERVAL 0.61 [facility] TELE INTERPRETATION Sinus Rhythm PV/RMT, LB/RN [facility] 12/12/2023 7:00 AM CDT Narrative [facility] - 12/12/2023 9:39 AM CDT Sinus Rhythm ??PV/RMT, LB/RN Interface Provider EKG Performing Organization Address [facility] de Phone Number [facility] [address] [place] [address] * INPATIENT TELEMETRY MONITORING (12/12/2023 5:40 AM CDT) TELE INTERPRETATION [facility] 12/12/2023 5:40 AM CDT Narrative [facility] - 12/12/2023 5:40 AM CDT [id number] Interface Provider EKG Performing Organization Address [facility] Co de Phone Number [facility] [address] [place] [address] * INPATIENT TELEMETRY MONITORING (12/11/2023 11:00 PM CDT) TELE P-R INTERVAL 0.12 [facility] TELE QRS DURATION 0.11 [facility] TELE R-R INTERVAL 0.62 [facility] TELE INTERPRETATION Sinus Rhythm SR HR 90s CS(RMT)/RAMSES (RN) [facility] 12/11/2023 11:0 0 PM CDT Narrative [facility] - 12/12/2023 5:23 AM CDT Sinus Rhythm ??SR HR 90s CS(RMT)/RAMSES(RN) Interface Provider EKG Performing Organization Address [facility] de Phone Number [facility] [address] [place] [id number] * INPATIENT TELEMETRY MONITORING (12/11/2023 7:05 AM CDT) TELE INTERPRETATION Sinus Arrhythmia TOM Ramirez P 12/11/2023 7:05 AM CDT Narrative [facility] - 12/11/2023 8:24 AM CDT Sinus Arrhythmia ??Taty Westbrook RN Interface Provider EKG Performing Organization Address [facility] de Phone Number [facility] [address] [place] [id number] * MR Brain W/WO IV Cont (12/11/2023 3:14 AM CDT) Anatomical Region Laterality Modality Head Magnetic Resonan ce 12/11/2023 3:14 AM CDT Narrative 12/11/2023 3:22 AM CDT EXAM: MR BRAIN W/WO IV CONT LOCATION: [facility] DATE: 12/11/2023 INDICATION: Multiple episodes of loss of consciousness COMPARISON: None. CONTRAST: GADOBUTROL 1 MMOL/ML IV SOLN 7.5 mL TECHNIQUE: Routine multiplanar multisequence head MRI without and with intravenous contrast. FINDINGS: INTRACRANIAL CONTENTS: No acute or subacute infarct. No mass, acute hemorrhage, or extra-axial fluid collections. Normal brain parenchymal signal. Normal ventricles and sulci. Normal position of the cerebellar tonsils. No pathologic contrast enhancement. SELLA: No abnormality accounting for technique. OSSEOUS STRUCTURES/SOFT TISSUES: Normal marrow signal. The major intracranial vascular flow voids are maintained. ORBITS: No abnormality accounting for technique. SINUSES/MASTOIDS: No paranasal sinus mucosal disease. No middle ear or mastoid effusion. IMPRESSION: 1. ??Normal head MRI. Procedure Note Vikash Mendiola MD - 12/11/2023 EXAM: MR BRAIN W/WO IV CONT LOCATION: [facility] DATE: 12/11/2023 INDICATION: Multiple episodes of loss of consciousness COMPARISON: None. CONTRAST: GADOBUTROL 1 MMOL/ML IV SOLN 7.5 mL TECHNIQUE: Routine multiplanar multisequence head MRI without and withintravenous contrast. FINDINGS: INTRACRANIAL CONTENTS: No acute or subacute infarct. No mass, acutehemorrhage, or extra-axial fluid collections. Normal brain parenchymalsignal. Normal ventricles and sulci. Normal position of the cerebellartonsils. No pathologic contrast enhancement. SELLA: No abnormality accounting for technique. OSSEOUS STRUCTURES/SOFT TISSUES: Normal marrow signal. The majorintracranial vascular flow voids are maintained. ORBITS: No abnormality accounting for technique. SINUSES/MASTOIDS: No paranasal sinus mucosal disease. No middle ear ormastoid effusion. IMPRESSION: 1. Normal head MRI. Carlton Wynne MD RAD MRI * Rapid Drug Panel, Urine with THC (12/10/2023 9:57 PM CDT) Pathologist [facility] [place] Amphetamines Screen Not Detected Not Detected 12/10/2023 10:38 PM CDT [facility] Barbiturates Screen Not Detected Not Detected 12/10/2023 10:38 PM [facility] Benzodiazepines Screen Not Detected Not Detected 12/10/2023 10:38 PM [facility] Buprenorphine Screen Not Detected Not Detected 12/10/2023 10:38 PM [facility] Cocaine Metabolite Screen Not Detected Not Detected 12/10/2023 10:38 PM T [facility] Methadone Screen Not Detected Not Detected 12/10/2023 10:38 PM [facility] Opiates Screen Not Detected Not Detected 12/10/2023 10:38 PM T [facility] Oxycodone Screen Not Detected Not Detected 12/10/2023 10:38 PM [facility] Phencyclidine (PCP) Screen Not Detected Not Detected 12/10/2023 10:38 PM [facility] THC (Marijuana) Metab Screen Not Detected Not Detected 12/10/2023 10:38 PM T [facility] Creatinine, Urine, Random 75 >20 mg/dL 12/10/2023 10:38 PM CDT [facility] Urine Non-blood Collection / Unknown 12/10/2023 9:57 PM CDT 12/10/2023 10:03 PM CDT [facility] - 12/10/2023 10:38 PM CDT The absence of expected drug(s) and/or drug metabolite(s) may indicate non-compliance, inappropriate timing of specimen collection relative to drug administration, poor drug absorption, diluted/adulterated urine or limitations of testing. The concentration must be greater than or equal to the cutoff concentration to be reported as positive. For medical purposes only: not valid for forensic, legal, or employment use. Carlton Wynne MD LAB_1 Performing Organization Address [facility] Co de Phone Number [facility] [address] [place] [address], [facility] * INPATIENT TELEMETRY MONITORING (12/10/2023 7:35 PM CDT) TELE P-R INTERVAL 0.16 [facility]USE [facility] TELE QRS DURATION 0.07 [facility]USE [facility] TELE R-R INTERVAL 0.64 MUSE [facility] TELE QT 0.25 [facility]USE [facility] TELE INTERPRETATION Sinus Rhythm w/ PAC's MUSE [facility] 12/10/2023 7:35 PM CDT Narrative [facility]USE [facility] - 12/10/2023 7:38 PM CDT Sinus Rhythm ??w/ PAC's Interface Provider EKG Performing Organization Address [facility] Co de Phone Number [facility] [address] [place] [address] * Liver Panel(Hepatic Function Panel) (12/10/2023 3:20 PM CDT) Alkaline Phosphatase 82 40 - 150 U/L 12/10/2023 6:48 PM CDT [facility] Bilirubin, Total 0.3 0.2 - 1.2 mg/dL 12/10/2023 6:48 PM CDT [facility] Bilirubin, Direct 0.2 0.0 - 0.5 mg/dL 12/10/2023 6:48 PM CDT [facility] AST (SGOT) 18 10 - 40 U/L 12/10/2023 6:48 PM CDT [facility] ALT (SGPT) 28 <=55 U/L 12/10/2023 6:48 PM CDT [facility] Protein, Total 7.3 6.4 - 8.3 g/dL 12/10/2023 6:48 PM CDT [facility] Albumin 3.8 3.5 - 5.0 g/dL 12/10/2023 6:48 PM CDT [facility] Blood Venipuncture / Unknown 12/10/2023 3:20 PM CDT 12/10/2023 3:27 PM CDT Carlton Wynne MD LAB_1 Performing Organization Address [facility]/ZIP Co de Phone Number [address] * TSH (12/10/2023 3:20 PM CDT) TSH, Sensitive 1.32 0.30 - 4.50 uIU/mL 12/10/2023 4:42 PM CDT [facility] Blood Venipuncture / Unknown 12/10/2023 3:20 PM CDT 12/10/2023 3:27 PM CDT Uma Vanessa PA-C LAB_1 Performing Organization Address [facility] Co de Phone Number [address] * Magnesium (12/10/2023 3:20 PM CDT) Magnesium 2.0 1.6 - 2.6 mg/dL 12/10/2023 4:24 PM CDT [facility] Blood Venipuncture / Unknown 12/10/2023 3:20 PM CDT 12/10/2023 3:27 PM CDT Uma Vanessa PA-C LAB_1 Performing Organization Address [facility] Co de Phone Number [address] * HCG, QUALitative, Serum (12/10/2023 3:20 PM CDT) [facility] HCG, Serum Qual Negative Negative 12/10/2023 3:51 PM CDT [facility] Blood Venipuncture / Unknown 12/10/2023 3:20 PM CDT 12/10/2023 3:27 PM CDT Carmelita Arnold MD LAB_1 Performing Organization Address [facility] Co de Phone Number [address] * Troponin I (12/10/2023 3:20 PM CDT) [facility] Troponin I <0.01 0.00 - 0.03 ng/mL 12/10/2023 4:07 PM CDT [facility] Blood Venipuncture / Unknown 12/10/2023 3:20 PM CDT 12/10/2023 3:27 PM CDT Carmelita Arnold MD LAB_1 Performing Organization Address [facility] Phone Number [address] * D Dimer, Quantitative (12/10/2023 3:20 PM CDT) [facility] D Dimer, Quant 0.38 <=0.50 ug/mL FEU 12/10/2023 3:50 PM CDT [facility] Blood Venipuncture / Unknown 12/10/2023 3:20 PM CDT 12/10/2023 3:27 PM CDT [facility] - 12/10/2023 3:50 PM CDT A D-dimer level <=0.50 ug/mL FEU in a patient with a low clinical pretest probability for a 1st episode of DVT can rule out lower extremity DVT (rate of DVT in next 3 months < 2%). ?? For patients greater than 50 years of age, the application of age-adjusted cut- off values for D-Dimer may increase the specificity without significant effect on sensitivity. The results in this laboratory are reported as ug/mL FEU. The calculation for age adjusted cut off in ug/mL FEU = age in years x 0.01 ug/mL FEU. For example, the cut off for a 76 year old male is 76 x 0.01 ug/mL FEU = <=0.76 ug/mL FEU. Increased D-dimer is seen in thromboembolism, DIC, liver disease, renal disease, cardiac infarct and failure, cancer, , stroke, infection, recent surgery, hemorrhage and age > 70 years. D-dimer levels decrease with anticoagulation therapy and increasing clot age. Carmelita Arnold MD LAB_[id number] [place] [address] * (ABNORMAL) Complete Blood Count -no Diff (12/10/2023 3:20 PM CDT) WBC 11.6(H) 3.5 - 10.5 x10(9)/L 12/10/2023 3:36 PM CDT [facility] RBC 4.75 3.90 - 5.03 x10(12)/L 12/10/2023 3:36 PM [facility] Hemoglobin 13.8 12.0 - 15.5 g/dL 12/10/2023 3:36 PM [facility] HCT 43.1 34.9 - 44.5 % 12/10/2023 3:36 PM [facility] MCV 90.7 80.0 - 100.0 fL 12/10/2023 3:36 PM [facility] MCH 29.1 27.6 - 33.3 pg 12/10/2023 3:36 PM T [facility] MCHC 32.0 31.5 - 35.2 g/dL 12/10/2023 3:36 PM [facility] RDW 13.2 11.9 - 15.5 % 12/10/2023 3:36 PM [facility] Platelets 347 150 - 450 x10(9)/L 12/10/2023 3:36 PM [facility] Automated NRBC 0 <=0 /100 WBC 12/10/2023 3:36 PM T [facility] Blood Venipuncture / Unknown 12/10/2023 3:20 PM CDT 12/10/2023 3:27 PM CDT Carmelita Arnold MD LAB_1 Performing Organization Address [facility]/ZIP Co de Phone Number [address] * Basic Metabolic Panel (12/10/2023 3:20 PM CDT) Pathologist [facility] Sodium 138 136 - 145 mmol/L 12/10/2023 4:04 PM T [facility] Potassium 3.6 3.5 - 5.1 mmol/L 12/10/2023 4:04 PM T [facility] Chloride 108 98 - 109 mmol/L 12/10/2023 4:04 PM T [facility] CO2 21 20 - 29 mmol/L 12/10/2023 4:04 PM T [facility] Anion Gap 9 7 - 16 mmol/L 12/10/2023 4:04 PM T [facility] Calcium 9.3 8.4 - 10.4 mg/dL 12/10/2023 4:04 PM T [facility] BUN 8 7 - 26 mg/dL 12/10/2023 4:04 PM T [facility] Creatinine 0.71 0.55 - 1.02 mg/dL 12/10/2023 4:04 PM [facility] Glucose 76 70 - 100 mg/dL 12/10/2023 4:04 PM [facility] Comment:The given reference range is for the fasting state. Non-fasting reference range for glucose is 70 - 180 mg/dL. GFR, Estimated >60 >60 mL/min/1.7 3m2 12/10/2023 4:04 PM [facility] Blood Venipuncture / Unknown 12/10/2023 3:20 PM CDT 12/10/2023 3:27 PM CDT Carmelita Arnold MD LAB_1 Performing Organization Address [facility] Co de Phone Number [address] * ECG 12-LEAD ROUTINE (12/10/2023 2:21 PM CDT) Ventricular Rate 79 BPM MUSE [facility]HP Atrial Rate 79 BPM [facility]USE [facility] P-R Interval 120 ms MUSE [facility] QRS Duration 98 ms MUSE [facility] QT 378 ms MUSE [facility] QTc 433 ms MUSE [facility] P [place] 30 degrees MUSE GHP R [place] 19 degrees MUSE GHP T [place] 13 degrees MUSE [facility] 12/10/2023 2:21 PM CDT Narrative [facility] - 12/11/2023 10:29 AM CDT Sinus rhythm Incomplete right bundle branch block Borderline ECG No previous ECGs available Confirmed by Danielle Castillo ([id number]) on 12/11/2023 10:29:57 AM Procedure Note Danielle Castillo MD - 12/11/2023 Sinus rhythm Incomplete right bundle branch block Borderline ECG No previous ECGs available Confirmed by Danielle Castillo ([id number]) on 12/11/2023 10:29:57 AM Kera Holguin MD EKG [facility] [address] [place] [address] documented in this encounter Visit Diagnoses Diagnosis Syncope and collapse- Primary Syncope, unspecified syncope type Incomplete RBBB Right bundle branch block Anxiety (HRC) Anxiety state, unspecified Heart murmur Undiagnosed cardiac murmurs Dizziness Dizziness and giddiness Panic attacks (HRC) Panic disorder without agoraphobia Emesis Vomiting alone LOC (loss of consciousness) (HRC) Other alteration of consciousness * Plan of Care - Howie Harmon RN - 12/13/2023 6:50 AM CDT Pt is A/Ox4. Denies, pain, SOB, and N/V. Neuros unchanged. No fever and no unresponsive episode witnessed or noted this shift. SBA, voiding, no BM. Appears to be sleeping comfortably overnight. Able to make needs known. * Plan of Care - Patricia King RN - 12/11/2023 12:51 PM CDT [facility] Care Management Screening Insurance Coverage: Payor: MEDICA / Plan: MEDICA CHOICE / Product Type: Commercial / Primary Care Provider: Jocelyn K Peñuelas, PA-C Admission Info: Cognitive capacity prior to admission: oriented Independent with ADLs (Prior to Admission)? Yes Living Environment: Living Arrangements (select all that apply): Home - multilevel, Siblings, Parents Follow Up: Please consult CM/SW if needs arise Additional Comments: Patient's chart was reviewed and per care connection rounds, No care management/social work discharge needs were identified. Anticipate patient will discharge home once medically cleared. Please contact the director day care center or social welfare research worker assigned to the treatment team if care coordination is identified. Patricia Degroot RN * Plan of Care - Taty Atkinson RN - 12/11/2023 10:43 AM CDT [facility] Nursing Transfer Note Admission Date/Time: 12/10/2023 2:27 PM Time of transfer: 11:05 AM Transfer from room #: 2608 Accepting nursing unit: [facility] Valuables/belongings sent with patient?: Yes Home meds being used in hospital sent with patient?: N/A Transported by: Wheelchair Family notified of unit transfer and change in patients condition: Yes General condition of patient at time of transfer: BP (!) 146/82 (BP Cuff Size: Regular) Pulse 78 Temp 98.1 ??F (36.7 ??C) (Oral) Resp 16 Ht 5' 3 (1.6 m) Wt 84.9 kg (187 lb 3.2 oz) LMP 11/16/2023 SpO2 100% BMI 33.16 kg/m?? A&Ox4, independent in room Pressure ulcer present: no Select criteria that may indicate need for specialty mattress: None Does patient need specialty mattress upon transfer? N/A Please order specialty mattress, if it is indicated. Need for continued central line assessed: N/A Need for continued indwelling urethral catheter assessed: N/A Device detached from patient in Epic prior to transfer: Yes * Plan of Care - Griselda Pugh RN - 12/11/2023 7:49 AM CDT Care hours: [id number]. Previous nurse and policy writer sales visited pt during shift change and pt had no complaints. Car Wash Manager went to save tele strip. While doing so, friends came out of the pts room and stated that she had another episode. Telemetry showing no changes at that time. Pt awake/alert/back to baseline when policy writer sales came into room. Friends stated that pt was out for about 2-2.5 minutes starting @1940, was breathing normally but unresponsive. Pt endorsed 2/10 sternal CP following episode and states this happens with each episode and resolves after 10min or so. No further syncopal events this shift. Friends/family left at 8pm. Tele: Sinus w/ PAC's. Ind to bathroom. * Plan of Care - Som Davies RN - 12/10/2023 6:55 PM CDT [facility]. Practitioner Notified Note Name of Practitioner notified: Carlton Wynne Time of Practitioner notification: 6:55 PM Reason: [id number] A Warp Picker. FYI pt had episode of syncope/fainting lasting about 5-10 seconds, 5 min ago. Vitally stable. Advise. Response: Provider coming to visit patient * Plan of Care - Pop Wolfe PharmD - 12/10/2023 4:09 PM CDT [facility] Medication History Note 1. Source(s) of Medication Information: Patient, Reg/Dr. Guzman, Care Everywhere 2. Pertinent Information: Patient interviewed and confirmed she does not take any prescription or OTC medications. Medications added: None Medications deleted: None Medications changed: None Compliance considerations: Not applicable 3. Outpatient Medications Marked as Taking: No outpatient medications have been marked as taking for the 12/10/23 encounter (Hospital Encounter). Thank you. This list represents the best possible medication history available at the time of note completion and should be used as a guide in reconciling home medications for hospital use. ? * Triage Assessment Note - Michelle Ward RN - 12/10/2023 2:07 PM CDT Chief complaint: syncope Symptoms/background/relevant history (narrative): pt here with friends who report she has been passing out. Seen at [place] ED yesterday for syncope and need followup for a Holter Monitor. Sincedischarge at 11pm, she had multiple syncopal episodes- friend put her apple watch on her and noted that her HR is at 1130-70 and then she passes out. What is most important to you about your ER visit today? eval Initial falls risk factors: Mobility Location and Intervention: Triage: [place] documented in this encounter Administered Medications Inactive Administered Medications - up to 3 most recent administrations Medication Order MAR Action Action Date Dose Rate Site acetaminophen (TYLENOL) tablet 650 mg 650 mg, Oral, Q6H PRN, Pain/Fever, Initially give acetaminophen for patient with mild pain., Starting on Mon12/10/23 at 1817, Until Mon12/13/23 at 1414, Initially give acetaminophen for patient with mild pain. Acetaminophen may be given WITH other pain medications as adjunct pain relief. Do not give two acetaminophen containing medications within 4 hours of each other. Given 12/12/2023 5:45 PM CDT 650 mg Given 12/12/2023 5:50 AM CDT 650 mg Given 12/11/2023 11:46 PM CDT 650 mg amoxicillin (AMOXIL) capsule 500 mg 500 mg, Oral, TID, First dose on Mon12/12/23 at 1400, For 10 days, Indications: Streptococcal Tonsillitis Given 12/13/2023 8:32 AM CDT 500 mg Given 12/12/2023 8:53 PM CDT 500 mg Given 12/12/2023 3:24 PM CDT 500 mg benzocaine-menthol (Chloraseptic) lozenge 1 Lozenge 1 Lozenge, Oral, Q2H PRN, Throat Pain, Cough, Starting on Mon12/10/23 at 1817, Until Mon12/13/23 at 1414 Given 12/12/2023 5:45 PM CDT 1 Lozenge Given 12/12/2023 5:50 AM CDT 1 Lozenge ibuprofen (MOTRIN) tablet 800 mg 800 mg, Oral, Q8H PRN, Fever, Pain, Starting on Mon12/11/23 at 1732, Until Mon12/13/23 at 1414, Give with food or milk. Given 12/12/2023 5:55 PM CDT 800 mg Given 12/11/2023 6:00 PM CDT 800 mg sodium chloride 0.9% bolus 1,000 mL 1,000 mL, Intravenous, Administer over 1 Hours, ONCE, On Mon12/10/23 at 1515, For 1 dose Started 12/10/2023 3:21 PM CDT 1,000 mL sodium chloride 0.9% infusion 1,000 mL, Intravenous, at 999 mL/hr, ONCE, On Mon12/12/23 at 1615, For 1 dose Started 12/12/2023 5:30 PM CDT 1,000 mL 999 mL/hr sodium chloride 0.9% infusion 1,000 mL, Intravenous, at 500 mL/hr, ONCE, On Mon12/12/23 at 1645, For 1 dose Started 12/12/2023 6:40 PM CDT 1,000 mL 500 mL/hr SUMAtriptan (IMITREX) tablet 25 mg 25 mg, Oral, ONCE, On Mon12/11/23 at 1930, For 1 dose, Give at onset of headache. May repeat after 2 hours. Do not exceed 200 mg in 24 hours. Given 12/11/2023 8:23 PM CDT 25 mg documented in this encounter Active and Recently Administered Medications Times are shown in CDT. Scheduled Medication Order 12/11/2023 12/12/2023 12/13/2023 amoxicillin (AMOXIL) capsule 500 mg 500 mg, Oral, TID, First dose on Mon12/12/23 at 1400, For 10 days, Indications: Streptococcal Tonsillitis 1524 (Given - Provider: Maria Dolores Lara RN)2053 (Given - Provider: Howie Harmon RN) 0832 (Given - Provider: Maria Dolores Lara RN) sodium chloride 0.9% infusion (COMPLETED) 1,000 mL, Intravenous, at 999 mL/hr, ONCE, On Mon12/12/23 at 1615, For 1 dose 1730 (Started - Provider: Maria Dolores Lara RN)184 (Infused - Provider: Maria Dolores Lara RN) sodium chloride 0.9% infusion (COMPLETED) 1,000 mL, Intravenous, at 500 mL/hr, ONCE, On Mon12/12/23 at 1645, For 1 dose 1840 (Started - Provider: Maria Dolores Lara RN) SUMAtriptan (IMITREX) tablet 25 mg (COMPLETED) 25 mg, Oral, ONCE, On Mon12/11/23 at 1930, For 1 dose, Give at onset of headache. May repeat after 2 hours. Do not exceed 200 mg in 24 hours. 2022 (Given - Provider: Rozina Eli RN) PRN Medication Order 12/11/2023 12/12/2023 12/13/2023 acetaminophen (TYLENOL) tablet 650 mg 650 mg, Oral, Q6H PRN, Pain/Fever, Initially give acetaminophen for patient with mild pain., Starting on Mon12/10/23 at 1817, Until Mon12/13/23 at 1414, Initially give acetaminophen for patient with mild pain. Acetaminophen may be given WITH other pain medications as adjunct pain relief. Do not give two acetaminophen containing medications within 4 hours of each other. 1421 (Given - Provider: Maria Dolores Lara RN)2346 (Given - Provider: Rozina Eli RN) 0550 (Given - Provider: Rozina Eli RN)1745 (Given - Provider: Maria Dolores Lara RN) benzocaine-menthol (Chloraseptic) lozenge 1 Lozenge 1 Lozenge, Oral, Q2H PRN, Throat Pain, Cough, Starting on 12/10/23 at 1817, Until Mon12/13/23 at 1414 0550 (Given - Provider: Rozina Eli RN)1745 (Given - Provider: Maria Dolores Lara RN) calcium carbonate (TUMS) chewable tablet 1,000 mg 1,000 mg, Oral, Q4H PRN, Heartburn, Upset Stomach, Starting on Mon12/10/23 at 1817, Until Mon12/13/23 at 1414, For indigestion/upset stomach ibuprofen (MOTRIN) tablet 800 mg 800 mg, Oral, Q8H PRN, Fever, Pain, Starting on 12/11/23 at 1732, Until Mon12/13/23 at 1414, Give with food or milk. 1800 (Given - Provider: Maria Dolores Lara, TOM) 1755 (Given - Provider: Maria Dolores Lara, TOM) melatonin tablet 6 mg 6 mg, Oral, HS PRN, Sedation, Starting on Mon12/10/23 at 1817, Until Mon12/13/23 at 1414 documented in this encounter Care Teams Java Developer Analyst Relationship Specialty Start Date End Date Jocelyn Devine PA-C [address] [place] [address] PCP - General Physician Ehs Specialist 12/11/23 documented as of this encounter
--- OUTSIDE RECORDS SUMMARY | 2024-02-15 22:16 | XMS_ITS | Encounter Summary ---
Author Organization [facility] [address] [place] [address] Care Team Providers Care Brake Operator Helper Name Role Phone Jocelyn Devine PA-C Primary Care Provider Encounter Details Date Type Department Care Team (Late st Contact Info) Description 12/18/2023 Notes/Orders [facility] Non[facility]In[facility] [address], [place] [id number] Keri Weston PA-C [address] [place] [address] Syncope, unspecified syncope type (Primary Dx) Social History Tobacco Use Types Packs/Day Years Used Date Smoking Tobacco: Never Assessed [facility] Utilities Answer Date Recorded In the past 12 months has e [employer], gas, oil, or water [employer] threatened to shut off services in your [...] place to sleep or slept in a penitentiary (including now)? No 12/10/2023 Sex and Gender Information Value Date Recorded Sex Assigned at Not on file Gender Identity Not on file Sexual Orientation Not on file documented as of this encounter Plan of Treatment Not on file documented as of this encounter Procedures Procedure Name Priority Date/Time Associated Diagnosis Comments LIZBETH W MAILOUT Routine 01/17/2024 11:59 PM CDT Syncope, unspecified syncope type documented in this encounter Results * LIZBETH W MAILOUT [id number] (01/17/2024 11:59 PM CDT) 01/17/2024 11:5 9 PM CDT Narrative [facility] - 01/30/2024 4:37 PM CDT Total ??Monitoring duration: 1 day, 1 hour, 14 minutes. No atrial fibrillation or atrial flutter. ??No significant PVCs or PACs less than 1%. No pauses more than 3 seconds. Symptoms of flutter/ skipped beats/tiredness/ fatigue associated with sinus bradycardia 59 beats per minute. Sinus tachycardia up to 185 beats per minute noted, ??no associated symptoms. Confirmed by Jenaro Abraham ([id number]) on 01/30/2024 4:37:11 PM Procedure Note Jenaro Abraham MD - 01/30/2024 Total Monitoring duration: 1 day, 1 hour, 14 minutes. No atrialfibrillation or atrial flutter. No significant PVCs or PACs less than 1%.No pauses more than 3 seconds. Symptoms of flutter/ skipped beats/tiredness/ fatigueassociated with sinus bradycardia 59 beats per minute. Sinus tachycardiaup to 185 beats per minute noted, no associated symptoms. Confirmed by Jenaro Abraham ([id number]) on 01/30/2024 4:37:11 PM Keri Weston PA-C CARDIOLOGY/[facility] [address] [place] [address] documented in this encounter Visit Diagnoses Diagnosis Syncope, unspecified syncope type- Primary documented in this encounter Care Teams Brake Operator Helper Relationship Specialty Start Date End Date Jocelyn Devine PA-C [address] [place] [address] PCP - General Physician Fixed Assets Accountant 12/11/23 documented as of this encounter
--- OUTSIDE RECORDS SUMMARY | 2024-02-15 22:16 | XMS_ITS | Clinical Summary ---
Author Organization [facility] Address [address] [place] [address] Care Team Providers Care Salvage Cutter Name Role Phone Jocelyn Devine PA-C Primary Care Provider Source Comments You are receiving this document as you are listed as the primary care provider,follow-up provider, or the patient has been referred to you for consultation.This is in compliance with the Medicare andMedicaid EHR Incentive Program,which states Providers who transition their patient to another setting of careor provider of care or refers their patient to another provider of care shouldprovide summary care record for each transition of care or referral. [facility] Allergies Active Allergy Reactions Criticality Noted Date Comments Banana Hives High 12/09/2023 Citrullus Vulgaris Hives High 01/05/2019 Pollen Extract Itching Medium 01/30/2018 Seasonal Allergies: Allergic Rhinitis, Itchy watery eyes Medications Medication Sig Dispensed Refills Start Date End Date Status ibuprofen (MOTRIN) 600 MG tablet Take 1 Tablet (600 mg) by mouth every 6 hours as needed for Pain or Fever. 30 Tablet 12/13/2023 Active Active Problems Problem Noted Date Diagnosed Date Incomplete RBBB 12/10/2023 Syncope and collapse 12/10/2023 Dizziness 12/10/2023 Panic attacks 12/10/2023 Emesis 12/10/2023 Anxiety 06/03/2020 Heart murmur 06/03/2020 Overview: Echocardiogram performed 04/06/2020; unremarkable. Echocardiogram performed 04/06/2020; unremarkable. Allergic rhinitis 03/21/2014 Resolved Problems Problem Noted Date Diagnosed Date Resolved Date LOC (loss of consciousness) 12/10/2023 02/11/2024 Encounters Date Type Department Care Team Description 12/18/2023 Notes/Orders [facility] Cardiac Non-Invasive Lab [address] [place] [id number] Keri Weston PA-C Syncope, unspecified syncope type (Primary Dx) 12/18/2023 Notes/Orders [facility] Cardiac Non-Invasive Lab [address] [place] [id number] Keri Weston PA-C Syncope, unspecified syncope type (Primary Dx) 12/11/2023 2:20 AM CDT Ancillary Procedure [facility] [address] [place] [id number] 12/10/2023 2:27 PM CDT - 12/13/2023 12:14 PM CDT Emergency [facility] S[address] [place] [id number] Carmelita Arnold MD Paddock, Michael T, DO Enroth, Karl O, MD Verner, James R, MD Brunnquell, Michael J, MD Muigai, Maureen M, PA-C Syncope, unspecified syncope type (Primary Dx) Discharge Disposition: Home from Last 3 Months Social History Tobacco Use Types Packs/Day Years Used Date Smoking Tobacco: Never Assessed [facility] Utilities Answer Date Recorded In the past 12 months has th e [employer], gas, oil, or water [employer] threatened to shut off services in your [...] place to sleep or slept in a m[facility]p (including now)? No 12/10/2023 Sex and Gender Information Value Date Recorded Sex Assigned at Not on file Gender Identity Not on file Sexual Orientation Not on file Last Filed Vital Signs Vital Sign Reading [...] Mass Index 33.16 12/10/2023 6:25 PM CDT Plan of Treatment Health Maintenance Due Date Last Done Comments Chlamydia 2003 Hep C Screening (Preventive Services) 2003 HIV Screening (Preventive Services) 2019 Adult Preventive Visit 2021 HepB (1) 2022 COVID-19 Vaccine ( season) 2023 Influenza (Season Ended) 2024 019, 05/18/2018, 08/17/2016, Additional history exists DTaP/Tdap/Td (7 - Tdap) 04/22/2025 04/22/20 15, 01/28/2009, 01/19/2005, Additional history exists Zoster/Shingles (1 of 2) 2053 Hib Completed 01/19/2005, 02/03, 2003 Pneumococcal Aged Out 01/19/2005, 04/04, 02/24/2004, Additional history exists No longer eligible based on patient's age to complete this topic IPV (Polio) Completed 01/28/2009, 04/04, 02/24/2004, Additional history exists HPV Vaccine Completed 08/17/2016, 04/22/2015 HepA Completed 08/17/2016, 04/22/2015 MCV4 Completed 04/15/2020, 04/22/2015 Procedures Procedure Name Priority Date/Time Associated Diagnosis Comments LIZBETH W MAILOUT Routine 01/17/2024 11:59 PM CDT Syncope, unspecified syncope type EJECTION FRACTION Routine 12/13/2023 8:5 8 AM CDT CARDIAC ROUTINE ECHOCARDIOGRAM Routine 12/13/2023 8:58 AM CDT INPATIENT TELEMETRY MONITORING Routine 12/13/2023 7:00 AM CDT CORTISOL Routine 12/13/2023 6:37 AM CDT MAGNESIUM Routine 12/13/2023 6:37 AM CDT BASIC METABOLIC PANEL Routine 12/13/2023 6:37 AM CDT COMPLETE BLOOD COUNT-NO DIFF Routine 12/13/2023 6:37 AM CDT INPATIENT TELEMETRY MONITORING Routine 12/12/2023 11:00 PM CDT RESPIRATORY PANEL Routine 12/12/2023 7:0 0 PM CDT BLOOD CULTURE Routine 12/12/2023 4:52 PM CDT BLOOD CULTURE Routine 12/12/2023 4:52 PM CDT BLOOD CULTURE Routine 12/12/2023 4:52 PM CDT BLOOD CULTURE Routine 12/12/2023 4:52 PM CDT BASIC METABOLIC PANEL STAT 12/12/2023 4:52 PM CDT COMPLETE BLOOD COUNT-NO DIFF STAT 12/12/2023 4:52 PM CDT IV INSERTION(LAB TO PERFORM) STAT 12/12/2023 4:52 PM CDT ECG 12-LEAD ROUTINE(LAB PERFORM) STAT 12/12/2023 1:01 PM CDT ECG-ROUTINE 12 LEAD; INTRPT & REPRT STAT 12/12/2023 12:57 PM CDT STREP GROUP A, MOLECULAR DETECTION STAT 12/12/2023 12:18 PM CDT INPATIENT TELEMETRY MONITORING Routine 12/12/2023 8:00 AM CDT EEG EXTENDED MONITORING Routine 12/12/2023 7:15 [...] FUNCTION PANEL) Add-On 12/10/2023 3:20 PM CDT TSH, SENSITIVE STAT Add-On 12/10/2023 3:20 PM CDT MAGNESIUM STAT Add-On 12/10/2023 3:20 PM CDT HCG,QUALITATIVE, SERUM STAT 12/10/2023 3:20 PM CDT TROPONIN I Specified Time 12/10/2023 3:20 PM CDT D DIMER, QUANTITATIVE STAT 12/10/2023 3:20 PM CDT COMPLETE BLOOD COUNT-NO DIFF STAT 12/10/2023 3:20 PM CDT BASIC METABOLIC PANEL STAT 12/10/2023 3:20 PM CDT ECG-ROUTINE 12 LEAD; INTRPT & REPRT STAT 12/10/2023 2:21 PM CDT from Last 3 Months Results * LIZBETH W MAILOUT [id number] (01/17/2024 11:59 PM CDT) 01/17/2024 11:5 9 PM CDT Narrative MUSE [facility] - 01/30/2024 4:37 PM CDT Total ??Monitoring [...] no associated symptoms. Confirmed by Jenaro Abraham ([id number]) on 01/30/2024 4:37:11 PM Keri Weston PA-C CARDIOLOGY/AR Performing Organization Address [facility] de Phone Number MUSE [facility] [address] [place] [address] * EJECTION FRACTION (12/13/2023 8:58 AM CDT) EF 65 % PROSOLV EF test type ECHO PROSOLV 12/13/2023 8:58 AM CDT Sid Starks MD HEART CENTER CAT H LAB/RH Performing Organization Address [facility] de Phone Number PROS[facility]V [address] [place] [phone] * CARDIAC ROUTINE ECHOCARDIOGRAM (12/13/2023 8:58 AM [...] size with normal wall thickness. Calculated biplane MBGP12-64%. No regional wall motion abnormalities. (Normal function).Indeterminate [...] HEART CENTER ECH O/RH Performing Organization Address [facility] de Phone Number [facility] [address] [place] [phone] * INPATIENT TELEMETRY MONITORING (12/13/2023 7:00 AM CDT) Only the most recent of8 resultswithin the time period is included. TELE P-R INTERVAL 0.13 [facility] TELE QRS DURATION 0.12 [facility] TELE INTERPRETATION Sinus Rhythm with ARRYTHMIA/ RMT,SS/RN, LB [facility] 12/13/2023 7:00 AM CDT Narrative [facility]USE [facility] - 12/13/2023 11:06 AM CDT Sinus Rhythm ??with ARRYTHMIA/RMT,SS/RNTRUDI Interface Provider MD EKG Performing Organization Address [facility] de Phone Number [facility] [address] [place] [address] * (ABNORMAL) Basic Metabolic Panel (12/13/2023 6:37 AM CDT) Only the most recent of3 resultswithin the time period is included. Sodium 137 136 - 145 mmol/L 12/13/2023 7:22 AM [facility] Potassium 3.9 3.5 - 5.1 mmol/L 12/13/2023 7:22 AM [facility] Chloride 110(H) 98 - 109 mmol/L 12/13/2023 7:22 AM [facility] CO2 21 20 - 29 mmol/L 12/13/2023 7:22 AM [facility] Anion Gap 6(L) 7 - 16 mmol/L 12/13/2023 7:22 AM [facility] Calcium 8.6 8.4 - 10.4 mg/dL 12/13/2023 7:22 AM [facility] BUN 7 7 - 26 mg/dL 12/13/2023 7:22 AM [facility] Creatinine 0.64 0.55 - 1.02 mg/dL 12/13/2023 7:22 AM [facility] Glucose 93 70 - 100 mg/dL 12/13/2023 7:22 AM [facility] Comment:The given reference range is for the fasting state. Non-fasting reference range for glucose is 70 - 180 mg/dL. GFR, Estimated >60 >60 mL/min/1.7 3m2 12/13/2023 7:22 AM [facility] Blood Venipuncture Butterfly / Unknown 12/13/2023 6:37 AM CDT 12/13/2023 6:53 AM CDT Keri Weston PA-C LAB_1 [place] [address], [facility] * (ABNORMAL) Complete Blood Count-No Diff (12/13/2023 6:37 AM CDT) Only the most recent of3 resultswithin the time period is included. WBC 16.0(H) 3.5 - 10.5 x10(9)/L 12/13/2023 7:00 AM [facility] RBC 4.32 3.90 - 5.03 x10(12)/L 12/13/2023 7:00 AM [facility] Hemoglobin 12.7 12.0 - 15.5 g/dL 12/13/2023 7:00 AM [facility] HCT 39.5 34.9 - 44.5 % 12/13/2023 7:00 AM [facility] MCV 91.4 80.0 - 100.0 fL 12/13/2023 7:00 AM [facility] MCH 29.4 27.6 - 33.3 pg 12/13/2023 7:00 AM [facility] MCHC 32.2 31.5 - 35.2 g/dL 12/13/2023 7:00 AM [facility] RDW 13.4 11.9 - 15.5 % 12/13/2023 7:00 AM [facility] Platelets 249 150 - 450 x10(9)/L 12/13/2023 7:00 AM CDT [facility] Automated NRBC 0 <=0 /100 WBC 12/13/2023 7:00 AM CDT [facility] Blood Venipuncture Butterfly / Unknown 12/13/2023 6:37 AM CDT 12/13/2023 6:53 AM CDT Keri Weston PA-C LAB_1 Performing Organization Address [facility] Co de Phone Number [address] * Cortisol (12/13/2023 6:37 AM CDT) Cortisol 12.2 2.9 - 19.4 mcg/dL 12/13/2023 7:39 AM CDT [facility] Blood Venipuncture Butterfly / Unknown 12/13/2023 6:37 AM CDT 12/13/2023 6:53 AM CDT [facility] - 12/13/2023 7:39 AM CDT Expected values AM (before 10am): 3.7-19.4 mcg/dL PM (after 5pm): 2.9-17.3 mcg/dL Keri Weston PA-C LAB_1 Performing Organization Address [facility] de Phone Number [address] * Magnesium (12/13/2023 6:37 AM CDT) Only the most recent of2 resultswithin the time period is included. Magnesium 1.9 1.6 - 2.6 mg/dL 12/13/2023 7:22 AM CDT [facility] Blood Venipuncture Butterfly / Unknown 12/13/2023 6:37 AM CDT 12/13/2023 6:53 AM CDT Keri Weston PA-C LAB_1 Performing Organization Address [facility] Co de Phone Number [address] * Respiratory Panel (12/12/2023 7:00 PM CDT) Pathologist [facility] Adenovirus Not Detected Not Detected 12/13/2023 1:40 AM CDT [facility] Coronavirus 229E Not Detected Not Detected 12/13/2023 1:40 AM CDT [facility] Coronavirus HKU1 Not Detected Not Detected 12/13/2023 1:40 AM CDT [facility] Coronavirus NL63 Not Detected Not Detected 12/13/2023 1:40 AM CDT [facility] Coronavirus OC43 Not Detected Not Detected 12/13/2023 1:40 AM CDT [facility] COVID-19 Interpretation Not Detected Not Detected 12/13/2023 1:40 AM CDT [facility] Human Metapneumovirus Not Detected Not Detected 12/13/2023 1:40 AM CDT [facility] Human Rhinovirus/Enterov irus Not Detected Not Detected 12/13/2023 1:40 AM CDT [facility] Influenza A Not Detected Not Detected 12/13/2023 1:40 AM CDT [facility] Influenza B Not Detected Not Detected 12/13/2023 1:40 AM CDT [facility] Parainfluenza Virus 1 Not Detected Not Detected 12/13/2023 1:40 AM CDT [facility] Parainfluenza Virus 2 Not Detected Not Detected 12/13/2023 1:40 AM CDT [facility] Parainfluenza Virus 3 Not Detected Not Detected 12/13/2023 1:40 AM CDT [facility] Parainfluenza Virus 4 Not Detected Not Detected 12/13/2023 1:40 AM CDT [facility] Respiratory Syncytial Virus Not Detected Not Detected 12/13/2023 1:40 AM CDT [facility] Bordetella Parapertussis Not Detected Not Detected 12/13/2023 1:40 AM CDT [facility] Bordetella pertussis Not Detected Not Detected 12/13/2023 1:40 AM CDT [facility] Chlamydia pneumoniae Not Detected Not Detected 12/13/2023 1:40 AM CDT [facility] Mycoplasma Pneumoniae Not Detected Not Detected 12/13/2023 1:40 AM CDT [facility] Swab (Source Required) (Nasopharyngeal swab) Non-blood Collection / Unknown 12/12/2023 7:00 PM CDT 12/12/2023 7:06 PM CDT Sid Starks MD LAB_1 Performing Organization Address City/[facility]/ZIP Co de Phone Number [facility] [address] * IV Insertion, LST Perform (12/12/2023 4:52 PM CDT) IV INSERTION, LST PERFORM (LAB) Done 12/12/2023 8:00 PM CDT [facility] Other Specimen Type Venipuncture / Unknown 12/12/2023 4:52 PM CDT 12/12/2023 6:37 PM CDT Keri Weston PA-C LAB_1 Performing Organization Address [facility] Co de Phone Number [address] * Blood Culture (12/12/2023 4:52 PM CDT) Only the most recent of2 resultswithin the time period is included. Blood Culture No Growth at 5 Days RH LAB ETEST METHOD 12/17/2023 6:00 PM CDT [facility] Blood VENIPUNCTURE / Unknown Venipuncture / Unknown 12/12/2023 4:52 PM CDT 12/12/2023 5:00 PM CDT Keri Weston PA-C LAB_1 Performing Organization Address [facility] Co de Phone Number [address] * ECG 12-Lead Routine (Lab perform) (12/12/2023 1:01 PM CDT) EKG Completed 12/12/2023 4:00 PM CDT [facility] Other Specimen Type Non-blood Collection / Unknown 12/12/2023 1:01 PM CDT 12/12/2023 2:22 PM CDT Sid Starks MD LAB_1 Performing Organization Address [facility]/State/ZIP Co de Phone Number [facility] [address] [place] [address], [facility] * Ecg 12-Lead Routine (MUSE) (12/12/2023 12:57 PM CDT) Only the most recent of2 resultswithin the time period is included. Pathologist [facility] Ventricular Rate 119 BPM [facility] Atrial Rate 119 BPM [facility] P-R Interval 128 ms [facility] QRS Duration 84 ms [facility] QT 306 ms [facility] QTc 430 ms [facility] P Forney 26 degrees [facility] R [place]ney 21 degrees [facility] T [place]ney 16 degrees [facility] 12/12/2023 12:5 7 PM CDT Narrative [facility] - 12/12/2023 1:44 PM CDT Sinus tachycardia Otherwise normal ECG When compared with ECG of 10-DEC-2023 14:21, Vent. rate has increased BY ??40 BPM Incomplete right bundle branch block is no longer Present Confirmed by Amarjit Philippe ([id number]) on 12/12/2023 1:44:00 PM Procedure Note Amarjit Philippe MD - 12/12/2023 Sinus tachycardia Otherwise normal ECG When compared with ECG of 10-DEC-2023 14:21, Vent. rate has increased BY 40 BPM Incomplete right bundle branch block is no longer Present Confirmed by Amarjit Philippe ([id number]) on 12/12/2023 1:44:00 PM Sid Starks MD EKG [facility] [address] [place] [address] * (ABNORMAL) Strep Group A by PCR (12/12/2023 12:18 PM CDT) [facility] Group A Strep Detected( A) Not Detected 12/12/2023 1:23 PM CDT [facility] Comment:Methodology: Qualita tive real-time PCR assay Swab (Source Required) THROAT SWAB / Unknown Non-blood Collection / Unknown 12/12/2023 12:18 PM CDT 12/12/2023 12:19 PM CDT Keri Weston PA-C LAB_[address] [address], [facility] * MR Brain W/WO IV Cont (12/11/2023 3:14 AM CDT) Anatomical Region Laterality Modality Head Magnetic Resonan ce 12/11/2023 3:14 AM CDT Narrative 12/11/2023 3:22 AM CDT EXAM: MR BRAIN W/WO IV CONT LOCATION: [facility] DATE: 12/11/2023 INDICATION: Multiple episodes of loss [...] EXAM: MR BRAIN W/WO IV CONT LOCATION: [facility] DATE: 12/11/2023 INDICATION: Multiple episodes of loss [...] Urine with THC (12/10/2023 9:57 PM CDT) [facility] Amphetamines Screen Not Detected Not Detected 12/10/2023 10:38 PM CDT [facility] Barbiturates Screen Not Detected Not Detected 12/10/2023 10:38 PM CDT [facility] Benzodiazepines Screen Not Detected Not Detected 12/10/2023 10:38 PM CDT [facility] Buprenorphine Screen Not Detected Not Detected 12/10/2023 10:38 PM CDT [facility] Cocaine Metabolite Screen Not Detected Not Detected 12/10/2023 10:38 PM CDT [facility] Methadone Screen Not Detected Not Detected 12/10/2023 10:38 PM [facility] Opiates Screen Not Detected Not Detected 12/10/2023 10:38 PM T [facility] Oxycodone Screen Not Detected Not Detected 12/10/2023 10:38 PM CDT [facility] Phencyclidine (PCP) Screen Not Detected Not Detected 12/10/2023 10:38 PM [facility] THC (Marijuana) Metab Screen Not Detected Not Detected 12/10/2023 10:38 PM T [facility] Creatinine, Urine, Random 75 >20 mg/dL 12/10/2023 10:38 PM [facility] Urine Non-blood Collection / Unknown 12/10/2023 9:57 PM CDT 12/10/2023 10:03 PM CDT [facility] - 12/10/2023 10:38 PM CDT The absence [...] or employment use. Carlton Wynne MD LAB_[address] [address], [facility] * Liver Panel(Hepatic Function Panel) (12/10/2023 3:20 PM CDT) Alkaline Phosphatase 82 40 - 150 U/L 12/10/2023 6:48 PM CDT [facility] Bilirubin, Total 0.3 0.2 - 1.2 mg/dL 12/10/2023 6:48 PM CDT [facility] Bilirubin, Direct 0.2 0.0 - 0.5 mg/dL 12/10/2023 6:48 PM CDT [facility] AST (SGOT) 18 10 - 40 U/L 12/10/2023 6:48 PM CDT [facility] ALT (SGPT) 28 <=55 U/L 12/10/2023 6:48 PM CDT [facility] Protein, Total 7.3 6.4 - 8.3 g/dL 12/10/2023 6:48 PM CDT [facility] Albumin 3.8 3.5 - 5.0 g/dL 12/10/2023 6:48 PM CDT [facility] Blood Venipuncture / Unknown 12/10/2023 3:20 PM CDT 12/10/2023 3:27 PM CDT Carlton Wynne MD LAB_1 Performing Organization Address City/State/[facility] Co de Phone Number [address] * D Dimer, Quantitative (12/10/2023 3:20 PM CDT) D Dimer, Quant 0.38 <=0.50 ug/mL FEU 12/10/2023 3:50 PM CDT [facility] Blood Venipuncture / Unknown 12/10/2023 3:20 PM CDT 12/10/2023 3:27 PM CDT [facility] - 12/10/2023 3:50 PM CDT A D-dimer [...] increasing clot age. Carmelita Arnold MD LAB_1 Performing Organization Address [facility] Co de Phone Number [address] * TSH (12/10/2023 3:20 PM CDT) Pathologist [facility] TSH, Sensitive 1.32 0.30 - 4.50 uIU/mL 12/10/2023 4:42 PM CDT [facility] Blood Venipuncture / Unknown 12/10/2023 3:20 PM CDT 12/10/2023 3:27 PM CDT Uma Vanessa PA-C LAB_1 Performing Organization Address [facility] Phone Number [address] * Troponin I (12/10/2023 3:20 PM CDT) Pathologist [facility] Troponin I <0.01 0.00 - 0.03 ng/mL 12/10/2023 4:07 PM CDT [facility] Blood Venipuncture / Unknown 12/10/2023 3:20 PM CDT 12/10/2023 3:27 PM CDT Carmelita Arnold MD LAB_1 Performing Organization Address [facility] de Phone Number [address] * HCG, QUALitative, Serum (12/10/2023 3:20 PM CDT) HCG, Serum Qual Negative Negative 12/10/2023 3:51 PM CDT [facility] Blood Venipuncture / Unknown 12/10/2023 3:20 PM CDT 12/10/2023 3:27 PM CDT Carmelita Arnold MD LAB_[address] [address], [facility] from Last 3 Months Advance Directives * Full Code (Latest Code Status on File) Date Activated Date Inactivated Comments 12/10/2023 6:17 PM 12/13/2023 2:14 PM Care Teams Salvage Cutter Relationship Specialty Start Date End Date Jocelyn Devine [place] [address] [place] [address] PCP - General Physician Prepper 12/11/23
--- OUTSIDE RECORDS SUMMARY | 2024-02-15 22:16 | XMS_ITS | Encounter Summary ---
Author Organization [facility] [address] [place] [address] Care Team Providers Care Customer Service Advocate Name Role Phone Jocelyn Devine PA-C Primary Care Provider Encounter Details Date Type Department Care Team (Late st Contact Info) Description 12/18/2023 Notes/Orders [facility] Cardiac Non-Invasive Lab [address] [place], [place] [id number] Keri Weston PA-C [address] [place] [address] Syncope, unspecified syncope type (Primary Dx) Social History Tobacco Use Types Packs/Day Years Used Date Smoking Tobacco: Never Assessed [facility] Utilities Answer Date Recorded In the past 12 months has e [employer], gas, oil, or water [employer] threatened to shut off services in your [...] place to sleep or slept in a assisted (including now)? No 12/10/2023 Sex and Gender Information Value Date Recorded Sex Assigned at Not on file Gender Identity Not on file Sexual Orientation Not on file documented as of this encounter Plan of Treatment Not on file documented as of this encounter Visit Diagnoses Diagnosis Syncope, unspecified syncope type- Primary documented in this encounter Care Teams Customer Service Advocate Relationship Specialty Start Date End Date Jocelyn Devine PA-C [address] [place] [address] PCP - General Physician Computing Consultant 12/11/23 documented as of this encounter
--- OUTSIDE RECORDS SUMMARY | 2024-02-15 22:17 | XMS_ITS | Clinical Summary ---
Author Organization [facility] Address [place], [place] [address] Care Team Providers Care Consumer Loan Specialist Name Role Phone Margarita Floyd MD Primary Care Provide r Allergies Active Allergy Reactions Criticality Noted Date Comments Banana Hives High 12/09/2023 Bee Pollen Itching Medium 01/30/2018 Seasonal Allergies: Allergic Rhinitis, Itchy watery eyes Unlisted Allergen (Include Detail In Comments) Itching 01/30/2018 Seasonal Watermelon Hives High 01/05/2019 [place] Pollen Itching Medium 01/30/2018 Seasonal Allergies: Allergic Rhinitis, Itchy watery eyes Medications Medication Sig Dispensed Refills Start Date End Date Status rx codeine-guaFENesin, 10-100 mg/5 ml, (ROBITUSSIN AC) liquid (ED DC MED)Indications:Bron chospasm with bronchitis, acute Take 10 mL by mouth every 6 hours if needed (cough). 40 mL 03/06/2023 Active meclizine (ANTIVERT) 25 mg tablet Take 25 mg by mouth 3 times daily if needed for Vertigo. 12/09/2023 Active ibuprofen (ADVIL; MOTRIN) 600 mg tablet Take 600 mg by mouth every 6 hours if needed for Headache or Pain. 12/13/2023 Active citalopram (CELEXA) 20 mg tabletIndications:Ge neralized anxiety disorder Take 1 Tablet (20 mg) by mouth every morning. 90 Tablet 3 12/14/2023 Active triamcinolone (ARISTOCORT; KENALOG) 0.1 % creamIndications:Chet h Apply topically to affected area(s) three times daily. 45 g 12/14/2023 Active Active Problems Problem Noted Date Diagnosed Date Anxiety 06/03/2020 Murmur, cardiac 06/03/2020 Overview: Echocardiogram performed 04/06/2020; unremarkable. Bronchospasm 03/21/2014 Allergic rhinitis, cause unspecified 03/21/2014 Resolved Problems Problem Noted Date Diagnosed Date Resolved Date Bacterial pneumonia, unspecified 01/07/2012 04/03/2012 Overview: Hx of pnx 3x Encounters Date Type Department Care Team Description 12/14/2023 8:40 AM CDT Office Visit [facility] [address] [place] [address] Margarita Floyd MD Hospital F/U (12/08 Was at a truck meet, everything went black and fainted. Came through and passed out 2 more times before going in. Passed out 10 times at the hospital./Had a lot of tests./12/09 to 12/12. Was hospitalized. Had temp and and labs were off.) 12/14/2023 Travel from Last 3 Months Immunizations Name Administration Dates Next Due DTaP 01/19/2005 [id number] (Pediarix) 04/21/2004,02/24/2004,0 2003 DTaP-IPV (Kinrix) 01/28/2009 HIB PRP-OMP (PedvaxHIB) 02/24/2004,2003 HPV 9 (Gardasil 9) 08/17/2016,04/22/2015 Hepatitis A (Peds) 08/17/2016,04/22/2015 Hib Conjugate, Unspecified 01/19/2005,02/24/2004 ,2003 Influenza A (H1N1), Inactivated 07/24/2009 Influenza, IIV3 (Age 6-35 mos) 08/11/2011 Influenza, IIV3 (Age >=3 years) 08/11/2011 Influenza, IIV4 05/18/2018,08/17/2016 Influenza,CCIIV4 PRESERV FREE 08/10/2019 MMR 01/28/2009,10/26/2004 Meningococcal Vaccine (Menveo) 04/15/2020,2014 Pneumococcal conj 7-Valent (Prevnar 7) 0 01/19/2005,04/21/2004,02/24/2004,12/15 Tdap 04/22/2015 Varicella Vaccine 01/28/2009,10/26/2004 Family History Medical History Relation Name Comments Good Health Father Good Health Mother Relation Name Status Comments Father Mother Social History Tobacco Use Types Packs/Day Years Used Date Smoking Tobacco: Never Smokeless Tobacco: Never Tobacco Cessation:Counseling Given: Yes Alcohol Use Standard Drinks/Week Comments No 0 (1 standard drink = 0.6 oz pur e alcohol) PHQ-2 Answer Date Recorded PHQ-2 TOTAL SCORE 2 12/14/2023 Social Connections Answer Date Recorded Frequency of Communication with Friends and Fami ly 0 10/05/2023 Financial Resource Strain Answer Date R ecorded Difficulty of Paying Living Expenses 3 10/05/2023 Difficulty of Paying Living Expenses Not on file 10/05/2023 Food Insecurity Answer Date Recorded Worried About Running Out of Food in the Last Ye ar 1 10/05/2023 Transportation Needs Answer Date Record ed Lack of Transportation (Medical) 1 10/05/2023 Housing Stability Answer Date Recorded Unable to Pay for Housing in the Last Year 1 10/05/2023 Sex and Gender Information Value Date Recorded Sex Assigned at Not on file Gender Identity Not on file Sexual Orientation Not on file Obstetrics History Para Term AB IAB SAB Ectopic Multiple Livin g Live Births 0 0 0 0 0 0 0 0 0 0 0 Last Filed Vital Signs Vital Sign Reading Time Taken Comments Blood Pressure 114/77 12/14/2023 8:48 AM CDT Pulse 80 12/14/2023 8:48 AM CDT Temperature 36.9 ??C (98.4 ??F) 10/05/2023 1:44 PM CS T Respiratory Rate 18 03/06/2023 8:57 PM CDT Oxygen Saturation 100% 12/14/2023 8:48 AM CDT Inhaled Oxygen Concentration - - Weight 85.3 kg (188 lb) 12/14/2023 8:48 AM CDT Height 163.8 cm (5' 4.5) 12/14/2023 8:48 AM CDT Body Mass Index 31.77 12/14/2023 8:48 AM CDT Plan of Treatment Upcoming Encounters Date Type Department Care Team (Late st Contact Info) Description 02/22/2024 2:00 PM CDT Office Visit [facility] [address] [facility] [place] [phone] Melissa Ramirez MD [address] [place] [address] Health Maintenance Due Date Last Done Comments HIV for age 15-65 2018 Well Child Check for age 3-20 05/18/2019 05/18/2018, 03/21/2014, 01/28/2009 Chlamydia for age 16-24 2019 Hepatitis C screening for age 18-79 2021 COVID-19 vaccine series ( season) 2023 Influenza for age 9-49 05/05/2024 9, 05/18/2018, 08/17/2016, Additional history exists BMI (ht and wt on same day) for age 18+ 12/13/2024 12/14/2023 Depression screening for age 12+ 12/13/2024 12/14/2023, 08/17/2020, 07/27/2020, Additional history exists Tetanus booster 04/22/2025 04/22/2015 Pneumococcal series for age 6-64 Aged Out 01/19/2005, 04/21/2004, 02/24/2004, Additional history exists No longer eligible based on patient's age to complete this topic Tdap Completed 04/22/2015 HPV series for age 9-26 Completed 08/17/2016, 04/22 Meningococcal series for age 11-21 Completed 04/15/2020, 04/22/2015 Care Teams Consumer Loan Specialist Relationship Specialty Start Date End Date Margarita Floyd MD [address] [place] [address] PCP - General Family Practice 12/14/23
--- OUTSIDE RECORDS SUMMARY | 2024-02-15 22:17 | XMS_ITS ---
Author Organization [facility] Address [address] [place] [address] Care Team Providers Care Manager [employer] Name Role Phone Unavailable Unavailable Unavailable Surgery Details Not on file Complications Check Surgery Details section. Procedure Estimated Blood Loss Check Surgery Details section. Procedure Findings Check Surgery Details section. Procedure Specimens Taken Check Surgery Details section.
--- OUTSIDE RECORDS SUMMARY | 2024-02-15 22:17 | XMS_ITS | Encounter Summary ---
Author Organization [facility] Address [address] [place] [address] Care Team Providers Care Platform Inspector Name Role Phone Unavailable Primary Care Provider Unavailabl e Reason for Visit * Reason Comments Syncope Encounter Details Date Type Department Care Team (Late st Contact Info) Description 12/09/2023 6:34 PM CDT - 12/09/2023 10:45 PM CDT Emergency [facility] [address] [place] [phone] Clifford Yepez P.A.-Evelyn, P.A. [address] [place] [phone] Syncope And Near Syncope (Primary Dx); Tachycardia Paroxysmal (HCC) Discharge Disposition: Home or Self Care Social History Tobacco Use Types Packs/Day Years Used Date Smoking Tobacco: Some Days Cigarettes Tobacco Cessation:Ready to Q uit: Not Asked; Counseling Given: Not Answered Nutrition Answer Date Recorded Nutrition: EVOO Fat Source Unknown 12/08 Nutrition: Servings of Fruits/Vegetables per Day Not on file 12/09/2023 Dental Answer Date Recorded Dental: Regular Dentist Unknown 12/09/19 Sex and Gender Information Value Date Recorded Sex Assigned at Not on file Gender Identity Not on file Sexual Orientation Not on file documented as of this encounter Last Filed Vital Signs Vital Sign Reading Time Taken Comments Blood Pressure 140/90 12/09/2023 10:30 PM CDT Pulse 97 12/09/2023 10:30 PM CDT Temperature 37.3 ??C (99.1 ??F) 12/09/2023 9:15 PM CD T Respiratory Rate 16 12/09/2023 10:30 PM CDT Oxygen Saturation 97% 12/09/2023 10:30 PM CDT Inhaled Oxygen Concentration - - Weight 83.7 kg (184 lb 8.4 oz) 12/09/2023 8:13 P M CDT Height - - Body Mass Index - - documented in this encounter Discharge Instructions * Discharge Instructions* Clifford Yepez P.A.-C. P.A. - 12/09/2023 10:32 PM CDT As discussed, you were offered continue ED observation versus hospital observation at this time however you would like to go home. If you have any new or worsening symptoms, please do not hesitate toreturn back to the emergency department. Please follow-up with [facility], as several times in the course of your ED stay, you had times for your heart rate would elevate. I recommend obtaining a Holter monitor by your primary care provider. If you have any new or worsening symptoms, please return backto the emergency department promptly. See below for further details You were examined and treated today in the [facility] Emergency Department (ED) on an emergency basis. This visit is not a substitute for comprehensive and ongoing medical care. In most cases, you must let your primary physician evaluate you again. Call your doctor today to advise them ofyour ED visit and arrange for out patient follow up. Tell your doctor about any new or lasting problems. After you leave the ED today, please follow the instructions provided to you. Return to the Emergency Department for new, or worsening such as: You pass out or faint. You have any of these symptoms: Fast or uneven heartbeats (palpitations). Pain in your chest, belly, or back. Shortness of breath. You have a seizure. You have a very bad headache. You are confused. You have trouble seeing. You are very weak. You have trouble walking. You are bleeding from your mouth or butt. You have black or tarry poop (stool). These symptoms may be an emergency. Get help right away. Call your local emergency services (911 inthe [place] Do not wait to see if the symptoms will go away. Do not drive yourself to the hospital. You have pain in your chest, upper arms, jaw, or neck. You have palpitations that do not go away. * Attachments The following attachments cannot be sent through Care Everywhere. * Near-Syncope Owop-ai-Tsaf (Slovenian) * Syncope Adult Fjmg-qc-Ooqj (Slovenian) * Sinus Tachycardia (Slovenian) documented in this encounter ED Notes * Clifford Yepez P.A.-C., P.A. - 12/09/2023 7:43 PM CDT SUBJECTIVE CHIEF COMPLAINT/REASON FOR VISIT Syncope HISTORY OF PRESENT ILLNESS Aj Sam is a 18 y.o. female The patient presented to the emergency department with concerns of syncope. Comorbidities include allergic rhinitis, acute bronchospasm, anxiety, and a heart murmur. The patient reported experiencing repeated episodes of syncope over the past 24 hours. She noted that she had been in good health until when she developed symptoms of food poisoning after eating dinner, which also affected her father. She experienced nausea and vomiting, which have since subsided. 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 She purchased lfcg-mib-ipuzhst Dramamine and felt slightly better the following morning. Today,at a truck meet-up, she had a near syncope episode accompanied by weakness, requiring assistance back to the vehicle. She denied any chest pain or shortness of breath, but mentioned a history of a cardiac murmur. There were no reported head injury, neck pain, dysphagia, dysarthria, urinary issues, or vaginal bleeding, and her last menstrual cycle was in early November with no vaginal discharge or abdominal pain. Nausea was reported but not emesis or diarrhea. History provided by: Patient and significant other REVIEW OF SYSTEMS OBJECTIVE Initial Vitals Temperature 12/09/23 1832 36.5 ??C Pulse Rate 12/09/23 1845 (!) 120 Heart Rate 12/09/23 1832 92 Resp Rate 12/09/23 1832 18 Blood Pressure 12/09/23 1832 149/82 SpO2 12/09/23 1832 99 % Pain Score 12/09/23 1850 0 - No pain PHYSICAL EXAMINATION Constitutional: Nursing note reviewed. She is active and cooperative. She is easily aroused. HENT: Head: Normocephalic and atraumatic. Head is without raccoon's eyes and without contusion. There is normal jaw occlusion. Eyes: Conjunctivae, EOM and lids are normal. Periorbital area normal appearing. Neck: Trachea normal. Cardiovascular: Regular rhythm and normal pulses. Regular rate rhythm, normal S1-S2 or sounds. Normal cap refill Strong palpable radial pulse. Pulmonary/Chest: Effort normal and breath sounds normal. Normal respiratory effort, Breath sounds present and clear to auscultation bilaterally. Abdominal: Soft nontender nondistended abdomen. Active bowel sounds. No McBurney point tenderness. Musculoskeletal: Cervical back: Normal range of motion. No spinous process tenderness or muscular tenderness. Neurological: Alert and easily aroused. Alert and oriented, EOMs intact. PERRLA. Cranial nerves 2-12 grossly intact. Sensory intact. Nftminzkheyz-cv-awjl, normal lhov-jf-amzg. No pronator drift. No aphasia, dysarthria or slurred speech. 5/5 strength in both upper and lower extremities bilaterally. No nystagmus on exam. Skin: Skin is warm and dry. No rash noted. Psychiatric: She has a normal mood and affect. Speech pattern is normal. ASSESSMENT/PLAN Assessment and Plan In summary, a 18-year-old female presented to the emergency department with concerns of syncope. The possible differentials include dehydration, metabolic derangement, ectopic , seizure disorder, Mpncx-Qoislletc-Cmmyd syndrome versus other tachyarrhythmias, atrioventricular block, posturalorthostatic tachycardia syndrome, UTI, pyelonephritis, periodic hypokalemic paralysis syndrome, hyperthyroidism, and anxiety, among others. On physical examination, the patient appeared well without acute distress, was afebrile, and had unremarkable vital signs. Cardiopulmonary exam was largely unremarkable, aside from a previously diagnosed cardiac murmur and normal echocardiogram findings from 04/30/2020. Final Impressions: 1. Normal left ventricular size, normal wall thickness, normal global systolic function, calculated EF of 66 % .2. Right ventricular cavity size is normal, global systolic RV function is normal.3. No significant valve disease detected. Abdomen was soft, nontender, and nondistended, with no urinary symptoms reported. No focal neurologic deficits were noted, and the patient denied chest pain or shortness of breath. A comprehensive workup will be performed, including a head CT due to reported headache, as well as fluid administration. . I reviewed the following external records: outside ED records and primary care records. ED Course as of 12/09/232234 Sat Dec 09, 20232020 Nitrite, U: Negative Negative nitrates, negative for infection 2020 Leukocyte Esterase: Negative Negative leukocyte esterase, negative for infection 2020 Leukocytes(!): 12.7 Leukocytosis with left shift. Nonspecific at this time. 2020 Glucose, POCT, B: 97 Less concern for DKA or hypoglycemia 2022 Lactate: 1.0 No reported history of seizure activity. Less concern for hypoperfusion or ischemia at this time. 2039 Test, POCT, U: Negative Negative for ectopic . 2039 TSH, Sensitive: 1.3 Less concern for hyperthyroidism. 2039 Magnesium, P: 2.1 Magnesium within normal limits. 2039 ECG 12 Lead EKG personally reviewed, normal sinus rhythm, no ST elevation or other specific signs of ischemia. Normal [place], normal QT interval. No pre-excitation appreciated. No delta wave. 2055 SARS CoV-2, PCR, Rapid, V: Undetected Negative COVID. 0 CT Head without IV Contrast Normal CT of the head without contrast. 2141 All labs and imaging negative. Patient would have brief episodes of tachycardia. We will orderD-dimer. 2225 D-Dimer, P: 344 Less concern for pulmonary embolism 2230 Did try meclizine here in the emergency department and patient states that she feels slightly better. Patient did have runs of tachycardia here in the emergency department. She did not have any repeat syncopal episodes. I did offer patient hospital observation versus admission however she was like to declined and would like to go home at this time. With the lack of continued symptoms here inthe emergency department feel this is reasonable. She does follow-up with Jessica, and I did offer her a Holter monitor in her the follow-up with 1 of our primary care providers here however she was like to do this at her outside facility. I feel this is reasonable. Patient encouraged to return if she has any new or worsening symptoms, she verbalized understanding. At this time, patient dischargedin stable ambulatory condition Final Diagnoses: as of 12/09/232234 Syncope And Near Syncope Tachycardia Paroxysmal (HCC) My ECG interpretation is documented in ED Course. My CT Scan interpretation is documented in ED Course. Clifford Yepez P.A.-C., P.A. 12/09/23 2236 * Annette Pickard R.N. - 12/09/2023 6:50 PM CDT Patient presents to ED with multiple episodes of syncope within the last hour. Pt reports being dizzy while lying in bed last night. Took a dramamine. Woke up still dizzy but slightly better. Spent the day today at a truck meet where about 45 min [employer] she grabbed her sister saying she was going topass out and proceeded to pass out. In the last 45 minutes she passed out 3-4 more times. Has become less responsive a couple times in the ED but was able to be roused. Very weak and shaky and needed 2 assist getting into bed. Annette Pickard R.N. 12/09/23 1854 documented in this encounter Plan of Treatment Not on file documented as of this encounter Procedures Procedure Name Priority Date/Time Associated Diagnosis Comments D-DIMER, P STAT 12/09/2023 9:[address] HEAD WITHOUT IV CONTRAST RAD - Semiurgent (Fast; most ED patients; some inpatients) 12/09/2023 8:48 PM CDT SARS CORONAVIRUS 2, PCR RAPID, V STAT 12/09/2023 8:33 PM CDT TEST, POCT, U (LAB) STAT 12/09/2023 8:14 PM CDT INFLUENZA A, B, RSV, PCR, POCT STAT 12/09/2023 8:07 PM CDT ECG STAT 12/09/2023 8:06 PM CDT CBC WITH DIFFERENTIAL, B STAT 12/09/2023 7:57 PM CDT THYROID-STIMULATIN G HORMONE-SENSITIVE (S-TSH) STAT 12/09/2023 7:57 PM CDT MAGNESIUM, S STAT 12/09/2023 7:57 PM CDT LACTATE, B/P STAT 12/09/2023 7:57 PM CDT BASIC METABOLIC PANEL, S/P STAT 12/09/2023 7:57 PM CDT URINALYSIS WITH MICROSCOPIC STAT 12/09/2023 7:49 PM CDT GLUCOSE POCT, B Routine 12/09/2023 6:41 PM CDT documented in this encounter Results * D-Dimer (12/09/2023 9:52 PM CDT) Pathologist [facility] [place] D-Dimer, P 344 <=500 ng/mL FEU 12/09/2023 10:12 PM CDT [facility] Comment: ----ADDITIONAL INFORMATION---- D-dimer values less than or equal to 500 ng/mL fibrinogen equivalent units (FEU) may be used in conjunction with clinical pre-test probability to exclude deep vein thrombosis (DVT) and/or pulmonary embolism (PE). Blood (Blood, Venous) 12/09/2023 9:52 PM CDT 12/09/2023 9:55 PM CDT Clifford Yepez P.A.-C., P.A. LAB BLOO D ADD-ON [facility] [address] [place] [phone], [facility] in [address] [address] * CT Head without IV Contrast (12/09/2023 8:48 PM CDT) Anatomical Region Laterality Modality Head, Neuroradiology RST LOS , Neuroradiology ARZ LOS, Neuroradiology FLA LOS N/A Computed Tomography 12/09/2023 8:43 PM CDT Impressions 12/09/2023 9:[address] of the head without contrast. Narrative 12/09/2023 9:03 PM CDT EXAM: CT HEAD WITHOUT IV CONTRAST COMPARISON: None FINDINGS: There is no evidence of acute intracranial hemorrhage. There is no intracranial mass. There is no midline shift. Ventricles and sulci appear within normal limits. There is no evidence of acute infarction. The skull is intact, with no fracture or lytic lesion. Incidental note is made of mild calcification of the anterior falx. Procedure Note Sid Pryor M.D. - 12/09/2023 EXAM: CT HEAD WITHOUT IV CONTRAST COMPARISON: None FINDINGS: There is no evidence of acute intracranial hemorrhage. There isno intracranial mass. There is no midline shift. Ventricles and sulciappear within normal limits. There is no evidence of acute infarction. Theskull is intact, with no fracture or lytic lesion. Incidental note is made of mild calcification of theanterior falx. IMPRESSION: Normal CT of the head without contrast. Clifford Yepez P.A.-C., P.A. IMG CT P ROCEDURES * SARS Coronavirus 2, PCR Rapid Symptomatic (12/09/2023 8:33 PM CDT) Pathologist [facility] [place] SARS CoV-2, PCR, Rapid, V Undetected Undetected 12/09/2023 8:37 PM CDT [facility] Comment: ----ADDITIONAL INFORMATION---- This RT-PCR test was performed using the [employer] SARS-CoV-2 and Influenza A/B Reagent assay from [employer], which has received Emergency Use Authorization(EUA) by the U.S. Food and Drug Administration. Fact sheets for this Emergency Use Authorization (EUA) assay can be found at the following links: For Healthcare Providers: https://www.fda.gov/media/638391/download For Patients: https://www.fda.gov/media/061843/download SARS Coronavirus 2, Source, Rapid Swab, Nasopharynx 12/09/2023 8:33 PM CDT CNFL Swab (Nasopharynx) 12/09/2023 8:33 PM CDT 12/09/2023 8:33 PM CDT Clifford Yepez P.A.-C., P.A. LAB MICR OBIOLOGY - GENERAL ORDERABLES Performing Organization Address [facility] [place] [address], [place] [address] * Test, POCT, Urine (Lab) (12/09/2023 8:14 PM CDT) Test, POCT, U Negative 12/09/2023 8:28 PM CDT CNFL Urine (Urine, Midstream) 12/09/2023 8:14 PM CDT 12/09/2023 8:14 PM CDT Clifford Yepez P.A.-C., P.A. LAB POCT ORDERABLES - DEVICE Performing Organization Address [facility] [place] [address], [place] [address] * Influenza A/B and RSV, PCR, Point of Care (12/09/2023 8:07 PM CDT) Influenza A, POCT Negative Negative 12/09/2023 8:35 PM CDT CNFL Influenza B, POCT Negative Negative 12/09/2023 8:35 PM CDT CNFL Resp Syncytial Virus, POCT Negative Negative 12/09/2023 8:35 PM CDT CNFL Swab (Nasopharynx) 12/09/2023 8:07 PM CDT 12/09/2023 8:33 PM CDT Clifford Yepez P.A.-C., P.A. LAB POCT ORDERABLES - DEVICE Performing Organization Address [facility] Co de Phone Number [facility] [address] [place] [phone], [facility] CNFL [facility] in [address] [address] * ECG 12 Lead (12/09/2023 8:06 PM CDT) Ventricular Rate ECG/Min 83 BPM MUSE [place] Interval 126 ms MUSE QRSD Interval 98 ms MUSE QT Interval 372 ms MUSE QTC Interval 437 ms MUSE P [place] 30 degrees MUSE R [place] 18 degrees MUSE T Wave [place] 10 degrees MUSE 12/09/2023 8:06 PM CDT 12/09/2023 8:26 PM CDT Impressions MUSE - 12/09/2023 8:26 PM CDT Normal sinus rhythm Incomplete right bundle branch block Nonspecific ST abnormality No previous ECGs available Reviewed by NIKO Khan Narrative Procedure Note Phoenix Michaels M.D. - 12/09/2023 IMPRESSION: Normal sinus rhythm Incomplete right bundle branch block Nonspecific ST abnormality No previous ECGs available Reviewed by NIKO Khan Clifford Yepez P.A.-C., P.A. ECG ORDE RABLES Performing Organization Address [facility] Co de Phone Number MUSE NA * S-TSH (Thyroid-Stimulating Hormone - Sensitive) (12/09/2023 7:57 PM CDT) TSH, Sensitive 1.3 0.3 - 4.2 mIU/L 12/09/2023 8:32 PM CDT CNFL Blood (Blood, Venous) 12/09/2023 7:57 PM CDT 12/09/2023 8:09 PM CDT Clifford Yepez P.A.-C., P.A. LAB BLOO D ADD-ON [address] [address], [address] [address] * Magnesium (12/09/2023 7:57 PM CDT) Magnesium, P 2.1 1.7 - 2.3 mg/dL 12/09/2023 8:24 PM CDT CNFL Blood (Blood, Venous) 12/09/2023 7:57 PM CDT 12/09/2023 8:09 PM CDT Clifford Yepez P.A.-C., P.A. LAB BLOO D ADD-ON Performing Organization Address City/[facility]/ZIP Co de Phone Number [address] [address], [address] [address] * Lactate (12/09/2023 7:57 PM CDT) Lactate, P 1.0 0.5 - 2.2 mmol/L 12/09/2023 8:22 PM CDT CNFL Blood (Blood, Venous) 12/09/2023 7:57 PM CDT 12/09/2023 8:01 PM CDT Clifford Yepez P.A.-C., P.A. LAB BLOO D NON ADD-ON [address] [address], [address] [address] * Basic Metabolic Panel (12/09/2023 7:57 PM CDT) Potassium, P 4.0 3.6 - 5.2 mmol/L 12/09/2023 8:24 PM CDT CNFL Sodium, P 137 135 - 145 mmol/L 12/09/2023 8:24 PM CDT CNFL Chloride, P 103 98 - 107 mmol/L 12/09/2023 8:24 PM CDT CNFL Bicarbonate, P 23 22 - 29 mmol/L 12/09/2023 8:24 PM CDT CNFL Anion Gap, P 11 7 - 15 12/09/2023 8:24 PM CDT CNFL BUN (Blood Urea Nitrogen), P 10 6 - 21 mg/dL 12/09/2023 8:24 PM CDT CNFL Creatinine 0.72 0.59 - 1.04 mg/dL 12/09/2023 8:24 PM CDT CNFL Estimated GFR (eGFR) >90 >=60 mL/min/BSA 12/09/2023 8:24 PM CDT CNFL Comment: Estimated GFR calculated using the 2020 CKD_EPI creatinine equation. Calcium, Total, P 9.5 8.6 - 10.0 mg/dL 12/09/2023 8:24 PM CDT CNFL Glucose, P 108 70 - 140 mg/dL 12/09/2023 8:24 PM CDT CNFL Blood (Blood, Venous) 12/09/2023 7:57 PM CDT 12/09/2023 8:09 PM CDT Clifford Yepez P.A.-C., P.A. LAB BLOO D ADD-ON [facility] [address] [place] [phone], [facility] CNFL [facility] in [address] [address] * (ABNORMAL) CBC with Differential, Blood (12/09/2023 7:57 PM CDT) Hemoglobin 15.0 11.6 - 15.0 g/dL 12/09/2023 8:07 PM CDT CNFL Hematocrit 45.1(H) 35.5 - 44.9 % 12/09/2023 8:07 PM CDT CNFL Erythrocytes 5.00 3.92 - 5.13 x10(12)/L 12/09/2023 8:07 PM CDT CNFL MCV 90.2 78.2 - 97.9 fL 12/09/2023 8:07 PM CDT CNFL RBC Distrib Width 13.0 12.2 - 16.1 % 12/09/2023 8:07 PM CDT CNFL Platelet Count 354 157 - 371 x10(9)/L 12/09/2023 8:07 PM CDT CNFL Leukocytes 12.7(H) 3.4 - 9.6 x10(9)/L 12/09/2023 8:07 PM CDT CNFL Neutrophils 9.92(H) 1.56 - 6.45 x10(9)/L 12/09/2023 8:07 PM CDT CNFL Lymphocytes 2.12 0.95 - 3.07 x10(9)/L 12/09/2023 8:07 PM CDT CNFL Monocytes 0.48 0.26 - 0.81 x10(9)/L 12/09/2023 8:07 PM CDT CNFL Eosinophils 0.09 0.03 - 0.48 x10(9)/L 12/09/2023 8:07 PM CDT CNFL Basophils 0.07 0.01 - 0.08 x10(9)/L 12/09/2023 8:07 PM CDT CNFL Blood (Blood, Venous) 12/09/2023 7:57 PM CDT 12/09/2023 8:01 PM CDT Clifford Yepez P.A.-C., P.A. LAB BLOO D ADD-ON [facility] [address] [place] [phone], [facility] in [address] [address] * Urinalysis, with Microscopic: Urine, Midstream (12/09/2023 7:49 PM CDT) Source Urine, Urine, Midstream 12/09/2023 8:14 PM CDT CNFL Clarity Clear Clear 12/09/2023 8:17 PM CDT CNFL Color Yellow 12/09/2023 8:17 PM CDT CNFL Comment: ----REFERENCE VALUE---- Colorless Yellow Nicole Blood Negative Negative 12/09/2023 8:17 PM CDT CNFL Nitrite Negative Negative 12/09/2023 8:17 PM CDT CNFL Leukocyte Esterase Negative Negative 12/09/2023 8:17 PM CDT CNFL Protein Negative mg/dL 12/09/2023 8:17 PM CDT CNFL Comment: ----REFERENCE VALUE---- Negative Trace Glucose Negative Negative mg/dL 12/09/2023 8:17 PM CDT CNFL Ketones, QI(U) Negative Negative mg/dL 12/09/2023 8:17 PM CDT CNFL Bilirubin Negative Negative 12/09/2023 8:17 PM CDT CNFL pH 6.0 5.0 - 8.0 12/09/2023 8:17 PM CDT CNFL Specific [place] 1.015 1.001 - 1.035 12/09/2023 8:17 PM CDT CNFL Urobilinogen 0.2 0.2 - 1.0 mg/dL 12/09/2023 8:17 PM CDT CNFL White Blood Cells Occ-3 /hpf 12/09/2023 8:33 PM CDT CNFL Comment: ----REFERENCE VALUE---- Males: 0-3 Females: 0-10 Unknown: 0-10 Red Blood Cells None Seen 0 - 2 /hpf 8:33 PM CDT CNFL Bacteria None Seen None Seen 12/09/2023 8:31 PM CDT CNFL Urine (Urine, Midstream) 12/09/2023 7:49 PM CDT 12/09/2023 8:14 PM CDT Clifford Yepez P.A.-C. P.A. LAB URIN E ORDERABLES Performing Organization Address [facility] Co de Phone Number [facility] [address] [place] [phone], [facility] CNFL [facility] in [address] [address] * Glucose, POCT (12/09/2023 6:41 PM CDT) Glucose, POCT, B 97 70 - 140 mg/dL 12/09/2023 6:41 PM CDT CNFL Blood 12/09/2023 6:41 PM CDT 12/09/2023 6:48 PM CDT Generic Rals LAB POCT ORDERABLES- MANUAL [facility] [address] [place] [address], [facility] in [address] [address] documented in this encounter Visit Diagnoses Diagnosis Syncope And Near Syncope- Primary Tachycardia Paroxysmal (HCC) documented in this encounter Administered Medications Inactive Administered Medications - up to 3 most recent administrations Medication Order MAR Action Action Date Dose Rate Site meclizine tablet 25 mg (ANTIVERT) 25 mg, oral, Once, On 12/09/23 at 2140, For 1 dose Given 12/09/2023 9:59 PM CDT 25 mg NaCl 0.9 % bolus 1,000 mL 1,000 mL, intravenous, at 2,000 mL/hr, Administer over 30 Minutes, Once, On 12/09/23 at 1937, For 1 dose New Bag 12/09/2023 7:59 PM CDT 1,000 mL 2000 mL/hr documented in this encounter Active and Recently Administered Medications Times are shown in CDT. Scheduled Medication Order 12/07/2023 12/08/2023 12/09/2023 meclizine tablet 25 mg (ANTIVERT) (COMPLETED) 25 mg, oral, Once, On 12/09/23 at 2140, For 1 dose 2158 (Given - Provid er: Jean Palomares R.N.) NaCl 0.9 % bolus 1,000 mL (COMPLETED) 1,000 mL, intravenous, at 2,000 mL/hr, Administer over 30 Minutes, Once, On 12/09/23 at 1937, For 1 dose 1958 (New Bag - Prov ider: Jean Palomares R.N.)2154 (Stopped - Provider: Jean Palomares R.N.) documented in this encounter Additional Health Concerns Infection Onset Date Last Indicated Resolved Time COVID19 Pending 12/09/2023 12/09/2023 12/09/2023 8 :56 PM CDT documented as of this encounter
--- OUTSIDE RECORDS SUMMARY | 2024-02-15 22:17 | XMS_ITS | Clinical Summary ---
Author Organization [facility] Address [address] [place] [id number] Care Team Providers Care Java Scala Developer Name Role Phone Unavailable Primary Care Provider Unavailabl e Source Comments Patient records contain information from all sites at [facility]. For routine questions regarding patient records, call [phone] during business hours, M-F 8:00 AM - 5:00 PM Central Time. Record requests for emergency care only can be directed to [phone] at any time.[facility] Allergies Active Allergy Reactions Criticality Noted Date Comments Banana Hives only, no other systemic symptoms High 12/09/2023 Watermelon Hives only, no other systemic symptoms,Hives (Reselect Reaction) High 01/05/2019 [place] Pollen Itching Medium 01/30/2018 Seasonal Allergies: Allergic Rhinitis, Itchy watery eyes Medications Medication Sig Dispensed Refills Start Date End Date Status meclizine (ANTIVERT) 25 mg tablet Take 1 tablet (25 mg total) by mouth 3 (three) times a day as needed for dizziness for up to 10 doses. 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 Anxiety 06/03/2020 Rhinitis Allergic 03/21/2014 Bronchospasm Acute 03/21/2014 Encounters Date Type Department Care Team Description 12/09/2023 6:34 PM CDT - 12/09/2023 10:45 PM CDT Emergency [facility] [address] [place] [phone] Clifford Yepez P.A.Judith., P.A. Syncope And Near Syncope (Primary Dx); Tachycardia Paroxysmal (HCC) Discharge Disposition: Home or Self Care from Last 3 Months Social History Tobacco Use Types Packs/Day Years Used Date Smoking Tobacco: Some Days Cigarettes Tobacco Cessation:Ready to Q uit: Not Asked; Counseling Given: Not Answered Nutrition Answer Date Recorded Nutrition: EVOO Fat Source Unknown 12/08 Nutrition: Servings of Fruits/Vegetables per Day Not on file 12/09/2023 Dental Answer Date Recorded Dental: Regular Dentist Unknown 12/09/19 24 Sex and Gender Information Value Date Recorded [...] - - Body Mass Index - - Plan of Treatment Health Maintenance Due Date Last Done Comments Chlamydia and Gonorrhea Screening 2003 HIV Screening 2003 Hearing Screening during Wel Child Visit 2003 Hepatitis C Screening 2003 Tobacco Cessation counseling 2003 1 week Well Child Check-Up 2003 1 month Well Child Check-Up 2003 2 month Well Child Check-Up 2003 4 month Well Child Check-Up 01/19/2004 6 month Well Child Check-Up 03/20/2004 9 month Well Child Check-Up 06/20/2004 12 month Well Child Check-Up 09/20/2004 15 month Well Child Check-Up 12/19/2004 18 month Well Child Check-Up 03/20/2005 2 year Well Child Check-Up 09/20/2005 30 month Well Child Check-Up 03/20/2006 3 year Well Child Check-Up 09/20/2006 Well Child Check-Up Complete d in Past Year 09/20/2006 4 year Well Child Check-Up 09/20/2007 5 year Well Child Check-Up 09/20/2008 6 year Well Child Check-Up 09/20/2009 Pneumococcal vaccine (0-64 y ears) (1 of 2 - PCV) 2009 01/19/2005, 04/21/2004, 02/24/2004, Additional history exists 7 year Well Child Check-Up 09/20/2010 8 year Well Child Check-Up 09/20/2011 9 year Well Child Check-Up 09/20/2012 10 year Well Child Check-Up 09/20/2013 11 year Well Child Check-Up 09/20/2014 12 year Well Child Check-Up 09/20/2015 13 year Well Child Check-Up 09/20/2016 14 year Well Child Check-Up 09/20/2017 Vision Screening during Well Child Visit 2017 15 year Well Child Check-Up 09/20/2018 16 year Well Child Check-Up 09/20/2019 17 year Well Child Check-Up 09/20/2020 18 year Well Child Check-Up 09/20/2021 19 year Well Child Check-Up 09/20/2022 COVID-19 Vaccine (1 - 2022-2 4 season) 2023 Influenza Vaccine (#1) 2023 9, 05/18/2018, 08/17/2016, Additional history exists Depression Screening (Annual PHQ-2) 09/04/2023 20 year Well Child Check-Up 09/20/2023 Well Child Check-Up (WCC) 09/20/2023 DTaP,Tdap,and Td Vaccines (7 - Td or Tdap) 04/22/2025 04/22/2015, 01/28/2009, 01/19/2005, Additional history exists Hepatitis B Vaccines Completed 04/21/2004, 02/24/2004, 2003 HPV Vaccines Completed 08/17/2016, 04/22/2015 Meningococcal Vaccine Completed 04/15/2020, 015 Anemia/Iron Deficiency Scree smooth During Well Child Visit (if High Risk Menstruating Female) Completed 12/09/2023, 12/08/2020, 04/15/2020 Procedures Procedure Name Priority Date/Time Associated Diagnosis [...] CDT ECG STAT 12/09/2023 8:06 PM CDT THYROID-STIMULATIN G HORMONE-SENSITIVE (S-TSH) STAT 12/09/2023 7:57 PM CDT MAGNESIUM, S STAT 12/09/2023 7:57 PM CDT LACTATE, B/P STAT 12/09/2023 7:57 PM CDT BASIC METABOLIC PANEL, S/P STAT 12/09/2023 7:57 PM CDT CBC WITH DIFFERENTIAL, B STAT 12/09/2023 7:57 PM CDT URINALYSIS WITH MICROSCOPIC STAT 12/09/2023 7:49 PM CDT GLUCOSE POCT, B Routine 12/09/2023 6:41 PM CDT from Last 3 Months Results * D-Dimer (12/09/2023 9:52 PM CDT) [facility] D-Dimer, P 344 <=500 ng/mL FEU 12/09/2023 10:12 PM CDT CNFL Comment: ----ADDITIONAL INFORMATION---- D-dimer values less than or equal to 500 ng/mL fibrinogen equivalent units (FEU) may be used in conjunction with clinical pre-test probability to exclude deep vein thrombosis (DVT) and/or pulmonary embolism (PE). Blood (Blood, Venous) 12/09/2023 9:52 PM CDT 12/09/2023 9:55 PM CDT Clifford Yepez P.A.-C., P.AChai LAB BLOO D ADD-ON [facility] [address] [place] [address], [facility] CNFL [facility] in [address] [address] * CT Head without IV Contrast (12/09/2023 [...] PCR Rapid Symptomatic (12/09/2023 8:33 PM CDT) SARS CoV-2, PCR, Rapid, V Undetected Undetected 12/09/2023 8:37 PM CDT [place] Comment: ----ADDITIONAL INFORMATION---- This RT-PCR test was performed using the Tahmina SARS-CoV-2 and Influenza A/B Reagent assay from [employer], which has received Emergency Use Authorization(EUA) by the U.S. Food and Drug Administration. Fact sheets for this Emergency Use Authorization (EUA) assay can be found at the following links: For Healthcare Providers: https://www.fda.gov/media/362738/download For Patients: https://www.fda.gov/media/655401/download SARS Coronavirus 2, Source, Rapid Swab, Nasopharynx 12/09/2023 8:33 PM CDT CNFL Swab (Nasopharynx) 12/09/2023 8:33 PM CDT 12/09/2023 8:33 PM CDT Clifford Yepez P.A.-C., P.A. LAB MICR OBIOLOGY - GENERAL ORDERABLES Performing Organization Address [facility] Co de Phone Number [facility] [address] [place] [address], [facility] [place] [address] * Test, POCT, Urine (Lab) (12/09/2023 8:14 PM CDT) Test, POCT, U Negative 12/09/2023 8:28 PM CDT CNFL Urine (Urine, Midstream) 12/09/2023 8:14 PM CDT 12/09/2023 8:14 PM CDT Clifford Yepez P.A.-C., P.A. LAB POCT ORDERABLES - DEVICE [address] [address], [address] [address] * Influenza A/B and RSV, PCR, Point of Care (12/09/2023 8:07 PM CDT) Influenza A, POCT Negative Negative 12/09/2023 8:35 PM CDT CNFL Influenza B, POCT Negative Negative 12/09/2023 8:35 PM CDT CNFL Resp Syncytial Virus, POCT Negative Negative 12/09/2023 8:35 PM CDT CNFL Swab (Nasopharynx) 12/09/2023 8:07 PM CDT 12/09/2023 8:33 PM CDT Clifford Yepez P.A.-C., P.A. LAB POCT ORDERABLES - DEVICE [address] [address], [address] [address] * ECG 12 Lead (12/09/2023 8:06 PM CDT) Ventricular Rate ECG/Min 83 BPM MUSE MO Interval 126 ms MUSE QRSD Interval 98 ms MUSE QT Interval 372 ms MUSE QTC Interval 437 ms MUSE P [place] 30 degrees MUSE R [place] 18 degrees MUSE T Wave [place] 10 degrees MUSE 12/09/2023 8:06 PM CDT [...] previous ECGs available Reviewed by NIKO Khan Fitz Brown P.A.-C. ECG ASIF GALLO MUSE NA * (ABNORMAL) CBC with Differential, Blood (12/09/2023 [...] 12/09/2023 8:01 PM CDT Clifford Yepez P.A.-C., PChaiA. LAB BLOO D ADD-ON [address] [address], [address] [address] * S-TSH (Thyroid-Stimulating Hormone - Sensitive) (12/09/2023 7:57 PM CDT) TSH, Sensitive 1.3 0.3 - 4.2 mIU/L 12/09/2023 8:32 PM CDT CNFL Blood (Blood, Venous) 12/09/2023 7:57 PM CDT 12/09/2023 8:09 PM CDT Clifford Yepez P.A.-C., P.A. LAB BLOO D ADD-ON [address] [address], [place] [address] [address] * Magnesium (12/09/2023 7:57 PM CDT) Magnesium, P 2.1 1.7 - 2.3 mg/dL 12/09/2023 8:24 PM CDT CNFL Blood (Blood, Venous) 12/09/2023 7:57 PM CDT 12/09/2023 8:09 PM CDT Clifford Yepez P.A.-C., P.A. LAB BLOO D ADD-ON [address] [address], [place] [facility] in [address] [address] * Lactate (12/09/2023 7:57 PM CDT) Lactate, P 1.0 0.5 - 2.2 mmol/L 12/09/2023 8:22 PM CDT CNFL Blood (Blood, Venous) 12/09/2023 7:57 PM CDT 12/09/2023 8:01 PM CDT Clifford Yepez P.A.-C., Fitz LAB GERMAINO D NON ADD-ON [facility] [address] [place] [address], [facility] CNFL [facility] [place] [address] * Basic Metabolic Panel (12/09/2023 7:57 PM [...] 7:57 PM CDT 12/09/2023 8:09 PM CDT Fitz Brown P.A.-C. LAB BLOO D ADD-ON [facility] [address] [place] [address], [facility] CNFL [facility] in [address] [address] * Urinalysis, with Microscopic: Urine, Midstream (12/09/2023 [...] 8.0 12/09/2023 8:17 PM CDT CNFL Specific [place] 1.015 1.001 - 1.035 12/09/2023 8:17 PM [...] 12/09/2023 8:14 PM CDT Clifford Yepez P.A.-C., PReba LAB URIN E ORDERABLES Performing Organization Address City/[facility]/ZIP Co de Phone Number [address] [address], [address] [address] * Glucose, POCT (12/09/2023 6:41 PM CDT) [facility] Glucose, POCT, B 97 70 - 140 mg/dL 12/09/2023 6:41 PM CDT CNFL Blood 12/09/2023 6:41 PM CDT 12/09/2023 6:48 PM CDT Generic [facility] LAB POCT ORDERABLES- MANUAL Performing Organization Address [facility] Co de Phone Number [address] [address], [address] [address] from Last 3 Months
--- OUTSIDE RECORDS SUMMARY | 2024-02-15 22:17 | XMS_ITS | Encounter Summary ---
Author Organization [facility] Address [address] [place] [address] Care Team Providers Care Senior Data Mining Analyst Name Role Phone Jocelyn Devine PA-C Primary Care Provider [phone] Reason for Visit * Auth/Cert (Routine) Specialty Diagnoses / Procedures Referred By Contac t Referred To Contact Diagnoses Syncope, unspecified syncope type Syncope, unspecified syncope type Referral ID Status Reason Start Date Expiration Date Visits Re quested Visits Authorized [id number] 1 1 Encounter Details Date Type Department Care Team (Late st Contact Info) Description 12/11/2023 2:20 AM CDT Ancillary Procedure [facility] [address] [address] Social History Tobacco Use Types Packs/Day Years Used Date Smoking Tobacco: Never Assessed [facility] Utilities Answer Date Recorded In the past [...] place to sleep or slept in a chcf (including now)? No 12/10/2023 Sex and Gender Information Value Date Recorded Sex Assigned at Not on file Gender Identity Not on file Sexual Orientation Not on file documented as of this encounter Plan of Treatment Not on file documented as of this encounter Procedures Procedure Name Priority Date/Time Associated Diagnosis Comments INPATIENT TELEMETRY MONITORING Routine 12/13/2023 7:00 AM CDT INPATIENT TELEMETRY MONITORING Routine 12/12/2023 11:00 PM CDT INPATIENT TELEMETRY MONITORING Routine 12/12/2023 8:00 AM CDT MR BRAIN W/WO IV CONT Routine 12/11/2023 3:14 AM CDT documented in this encounter Results * INPATIENT TELEMETRY MONITORING (12/13/2023 7:00 AM CDT) TELE P-R INTERVAL 0.13 MUSE GHP TELE QRS DURATION 0.12 MUSE GHP TELE INTERPRETATION Sinus Rhythm with ARRYTHMIA/ RMT,SS/RN LB MUSE GHP 12/13/2023 7:00 AM CDT Narrative MUSE GHP - 12/13/2023 11:06 AM CDT Sinus Rhythm ??with ARRYTHMIA/RMT,SS/RNLB Interface Provider EKG MUSE GHP [address] [place] [address] * INPATIENT TELEMETRY MONITORING (12/12/2023 11:00 PM CDT) TELE P-R INTERVAL 0.14 MUSE GHP TELE QRS DURATION 0.11 MUSE GHP TELE R-R INTERVAL 0.82 MUSE GHP TELE INTERPRETATION Sinus Rhythm RMT/AA RN/PS MUSE GHP 12/12/2023 11:0 0 PM CDT Narrative MUSE GHP - 12/13/2023 4:18 AM CDT Sinus Rhythm ??RMT/AA RN/PS Interface Provider EKG Performing Organization Address [facility] [address] [facility] Co de Phone Number ADOLFO MORRISP [address] [place] [address] * INPATIENT TELEMETRY MONITORING (12/12/2023 8:00 AM CDT) TELE P-R INTERVAL 0.11 MUSE GHP TELE QRS DURATION 0.12 MUSE GHP TELE R-R INTERVAL 0.56 MUSE GHP TELE INTERPRETATION Sinus Tachy PV/RMT, LB/RN MUSE GHP 12/12/2023 8:00 AM CDT Narrative MUSE GHP - 12/12/2023 2:58 PM CDT Sinus Tachy ??PV/RMT, LB/RN Interface Provider EKG Performing Organization Address [facility] de Phone Number ADOLFO GRIFFIN [address] [place] [address] documented in this encounter Visit Diagnoses Not on filedocumented in this encounter Administered Medications Inactive Administered Medications - up to 3 most recent administrations Medication Order MAR Action Action Date Dose Rate Site gadobutrol (GADAVIST) 1 MMOL/ML injection 7.5 mL 7.5 mL, Intravenous, ONCE (NON-SCHEDULED), Starting on Mon12/11/23 at 0249, Until Mon12/11/23 at 0249, For 1 dose Given 12/11/2023 2:49 AM CDT 7.5 mL documented in this encounter Care Teams Senior Data Mining Analyst Relationship Specialty Start Date End Date Jocelyn Devine PA-C [address] [place] [address] PCP - General Physician Nurse Aide 12/11/23 documented as of this encounter
--- OUTSIDE RECORDS SUMMARY | 2024-02-15 22:17 | XMS_ITS | Referral Summary ---
Author Organization [facility] Address [address] [place] [address] Care Team Providers Care Fuel Cell Systems Engineer Name Role Phone Unavailable Primary Care Provider Unavailabl e Source Comments Patient records contain information from all sites at [facility]. For routine questions regarding patient records, call [phone] during business hours, M-F 8:00 AM - 5:00 PM Central Time. Record requests for emergency care only can be directed to [phone] at any time.[facility] Encounters Date Type Department Care Team Description 12/09/2023 6:34 PM CDT - 12/09/2023 10:45 PM CDT Emergency [facility] [address] [place] [phone] Clifford Yepez, John.-Dilip., P.A. Syncope And Near Syncope (Primary Dx); Tachycardia Paroxysmal (HCC) Discharge Disposition: Home or Self Care from Last 3 Months Allergies Active Allergy Reactions Criticality Noted Date Comments Banana Hives only, no other systemic symptoms High 12/09/2023 Watermelon Hives only, no other systemic symptoms,Hives (Reselect Reaction) High 01/05/2019 [place] Pollen Itching Medium 01/30/2018 Seasonal Allergies: Allergic [...] 06/03/2020 Rhinitis Allergic 03/21/2014 Bronchospasm Acute 03/21/2014 Social History Tobacco Use Types Packs/Day Years [...] Mass Index - - Plan of Treatment Not on file Procedures Procedure Name Priority Date/Time Associated Diagnosis [...] * D-Dimer (12/09/2023 9:52 PM CDT) Pathologist [facility] D-Dimer, P 344 <=500 ng/mL FEU 12/09/2023 10:12 PM CDT [facility] Comment: ----ADDITIONAL INFORMATION---- D-dimer values less than or equal to 500 ng/mL fibrinogen equivalent units (FEU) may be used in conjunction with clinical pre-test probability to exclude deep vein thrombosis (DVT) and/or pulmonary embolism (PE). Blood (Blood, Venous) 12/09/2023 9:52 PM CDT 12/09/2023 9:55 PM CDT Clifford Yepez P.A.-C., P.A. LAB BLOO D ADD-ON [facility] [address] [place] [address], [employer] in [address] [address] * CT Head without IV Contrast (12/09/2023 [...] head without contrast. Clifford Yepez P.A.-C., P.A. G CT P ROCEDURES * SARS Coronavirus 2, PCR Rapid Symptomatic (12/09/2023 8:33 PM CDT) SARS CoV-2, PCR, Rapid, V Undetected Undetected 12/09/2023 8:37 PM CDT [facility] Comment: ----ADDITIONAL INFORMATION---- This RT-PCR test was performed using the Tahmina SARS-CoV-2 and Influenza A/B Reagent assay from [employer], which has received Emergency Use Authorization(EUA) by the U.S. Food and Drug Administration. Fact sheets for this Emergency Use Authorization (EUA) assay can be found at the following links: For Healthcare Providers: https://www.fda.gov/media/612515/download For Patients: https://www.fda.gov/media/223979/download SARS Coronavirus 2, Source, Rapid Swab, Nasopharynx 12/09/2023 8:33 PM CDT CNFL Swab (Nasopharynx) 12/09/2023 8:33 PM CDT 12/09/2023 8:33 PM CDT Clifford Yepez P.A.-C., P.A. LAB MICR OBIOLOGY - GENERAL ORDERABLES Performing Organization Address [facility] Co de Phone Number [facility] [address] [place] [address], [place] [address] * Test, POCT, Urine (Lab) (12/09/2023 8:14 PM CDT) Test, POCT, U Negative 12/09/2023 8:28 PM CDT CNFL Urine (Urine, Midstream) 12/09/2023 8:14 PM CDT 12/09/2023 8:14 PM CDT Clifford Yepez P.A.-C., P.A. LAB POCT ORDERABLES - DEVICE Performing Organization Address [facility] [place] [address], [place] [address] * Influenza A/B and RSV, PCR, Point [...] POCT ORDERABLES - DEVICE Performing Organization Address [facility] Co de Phone Number [facility] [address] [place] [address], [facility] CNFL [facility] in [address] [address] * ECG 12 Lead (12/09/2023 8:06 PM CDT) Ventricular Rate ECG/Min [address] Interval 126 ms MUSE QRSD Interval 98 ms MUSE QT Interval 372 ms MUSE QTC Interval 437 ms MUSE P [place] 30 degrees MUSE R [place] 18 degrees MUSE T Wave [place] 10 degrees MUSE 12/09/2023 8:06 PM CDT [...] P.A. ECG ORDE RABLES Performing Organization Address [facility] Co de Phone Number MUSE NA * (ABNORMAL) CBC with Differential, [...] LAB BLOO D ADD-ON Performing Organization Address City/State/[facility] Co de Phone Number [facility] [address] [place] [address], [facility] CNFL [facility] in [address] [address] * S-TSH (Thyroid-Stimulating Hormone - Sensitive) (12/09/2023 7:57 PM CDT) TSH, Sensitive 1.3 0.3 - 4.2 mIU/L 12/09/2023 8:32 PM CDT CNFL Blood (Blood, Venous) 12/09/2023 7:57 PM CDT 12/09/2023 8:09 PM CDT Cliffodr Yepez P.A.-C., PChaiA. LAB BLOO D ADD-ON [address] [address], [address] [address] * Magnesium (12/09/2023 7:57 PM CDT) Magnesium, P 2.1 1.7 - 2.3 mg/dL 12/09/2023 8:24 PM CDT CNFL Blood (Blood, Venous) 12/09/2023 7:57 PM CDT 12/09/2023 8:09 PM CDT Clifford Yepez P.A.-C., P.A. LAB BLOO D ADD-ON Performing Organization Address [facility]/ZIP Co de Phone Number [address] [address], [address] [address] * Lactate (12/09/2023 7:57 PM CDT) Lactate, P 1.0 0.5 - 2.2 mmol/L 12/09/2023 8:22 PM CDT CNFL Blood (Blood, Venous) 12/09/2023 7:57 PM CDT 12/09/2023 8:01 PM CDT Clifford Yepez P.A.-C., P.A. LAB BLOO D NON ADD-ON [address] [address], [address] [address] * Basic Metabolic Panel (12/09/2023 7:57 PM [...] Yepez P.A.-C., P.A. LAB BLOO D ADD-ON [facility] [address] [place] [address], [facility] CNFL [facility] in [address] [address] * Urinalysis, with Microscopic: Urine, Midstream (12/09/2023 [...] 8.0 12/09/2023 8:17 PM CDT CNFL Specific [place] 1.015 1.001 - 1.035 12/09/2023 8:17 PM [...] PM CDT Clifford Yepez P.A.-C., P.A. LAB URIN E ORDERABLES [facility] [address] [place] [address], [facility] CNFL [facility] in [address] [address] * Glucose, POCT (12/09/2023 6:41 PM CDT) Glucose, POCT, B 97 70 - 140 mg/dL 12/09/2023 6:41 PM CDT CNFL Blood 12/09/2023 6:41 PM CDT 12/09/2023 6:48 PM CDT Generic [facility] LAB POCT ORDERABLES- MANUAL [facility] [address] [place] [address], [employer] in [address] [address] from Last 3 Months
[2024-02-15 22:25] LABS: Chloride* 108 mmol/L (96-114); Potassium* 3.7 mmol/L (3.6-5.1); Sodium* 139 mmol/L (135-149)
[2024-02-15 22:28] LABS: Anion Gap 10 mEq/L (7-15); Carbon Dioxide* 21 mmol/L (20-32); Creatinine* 0.7 mg/dL (0.5-1.5); D Dimer Quantitative* 0.33 ug/ml (0.00-0.50); Estimated Glomerular Filt Rate 127 ml/min
[2024-02-15 22:29] LABS: Blood Urea Nitrogen* 15 mg/dL (5-24); Calcium* 9.1 mg/dL (8.4-10.6); Glucose* 114 mg/dL (60-115)
[2024-02-15 22:30] LABS: HCG Qualitative Serum* Negative (Negative)
[2024-02-15 22:31] LABS: C Reactive Protein* 0.6 mg/dL (0.5-1.0)
[2024-02-15 22:46] LABS: NT Pro B Type NatriureticPept* < 20 pg/mL; Procalcitonin* < 0.03 ng/mL (<0.50); Troponin I* < 0.01 ng/mL (0.01-0.04)
[2024-02-15 22:53] LABS: PCR FLU A Negative PCR FLU A (Negative); PCR FLU B Negative PCR FLU B (Negative); PCR RSV Negative PCR RSV (Negative); SARS PCR* Negative SARS-CoV-2 (Negative)
[2024-02-15 22:58] LABS: Strep A DNA Probe* NOT DETECTED (Not Detectd)
[2024-02-15 23:00] VITALS: PULSE 79; RESP 16; O2SAT 99
[2024-02-15 23:29] VITALS: PULSE 75; O2SAT 98
== END 2024-02-16 00:19 | disposition home or self-care (01) ==
PROVIDERS: Emergency Provider Family Medicine; PCP Family Medicine
DX: R07.9 Chest pain, unspecified (principal)
CPT/HCPCS: 36415; 80048; 82803; 83605; 83735; 83880; 84145; 84484; 84703; 85025; 85379; 86140; 87631; 87651; 93005; 94761; 96360; 99284; J7120